=== PATIENT | female | born 1975 | race Two or more races ===

== ENCOUNTER → 2020-08-01 15:33 | Outpatient (BNVA) | payer MEDICAID, SELFPAY | PROVIDERS: Visit Provider Internal Medicine | DX: Z76.89 Persons encountering health services in other specified circumstances (principal) | CPT/HCPCS: 99212 ==

== ENCOUNTER → 2021-01-30 15:06 | Outpatient (BNVA) | payer MEDICAID, SELFPAY | PROVIDERS: Visit Provider Internal Medicine | DX: B19.10 Unspecified viral hepatitis B without hepatic coma (principal) | CPT/HCPCS: 99212 ==

== ENCOUNTER 2021-02-09 10:35 | Outpatient (REF) | payer MEDICAID, SELFPAY ==
[2021-02-09 11:38] LABS: Hematocrit 41.8 % (37-47); Hemoglobin 13.7 g/dl (12.0-16.0); Mean Corpuscular HGB Conc 32.8 g/dl (31.0-35.0); Mean Corpuscular Hemoglobin 27.3 pg (27.0-33.0); Mean Corpuscular Volume 83.3 fL (80-98); Mean Platelet Volume 9.8 fL (9.4-12.3); Platelet Count 285 X10*3/uL (160-400); Red Blood Count 5.02 X10*6/uL (4.20-5.50); Red Cell Distribution Width 14.5 % (11.0-16.0); White Blood Count 6.6 X10*3/uL (4.8-10.8)
[2021-02-09 12:14] LABS: Alanine Aminotransferase 11 U/L (0-31); Albumin Level 4.3 g/dL (3.5-5.0); Alkaline Phosphatase 66 U/L (39-117); Anion Gap 11 (12-20); Aspartate Amino Transferase 16 U/L (5-31); Bilirubin Direct 0.2 mg/dL (0.0-0.5); Bilirubin Total 0.8 mg/dL (0.0-1.0); Blood Urea Nitrogen 11 mg/dL (9-16); Calcium 9.1 mg/dL (8.4-10.2); Carbon Dioxide 27 mmol/L (22-29); Chloride 104 mmol/L (96-108); Estimated Glomerular Filt Rate > 60; Glucose Random 103 mg/dL (60-115); Potassium 4.4 mmol/L (3.3-5.1); Sodium 138 mmol/L (135-145); Total Protein 7.5 g/dL (6.5-8.0)
[2021-02-09 12:43] LABS: HBS Num1 0.17 mIU/mL (0-7.99); ~Hepatitis B Surface Antibody NONREACTIVE (Nonreactive)
[2021-02-09 14:44] LABS: HBsAGNum2 Reactive; HBsAGNum3 Reactive; Hepatitis B Surface Antigen Retest CNFM (Negative)
[2021-02-09 14:52] LABS: Hepatitis B Surface Antigen Rep Reactive (Negative)
[2021-02-10 10:21] LABS: Hepatitis BE Antibody REACTIVE (NON-REACTIVE); Hepatitis BE Antigen NON-REACTIVE (NON-REACTIVE)
[2021-02-11 11:37] LABS: Hepatitis B Viral DNA Qn - cp <1.00 NOT DETECTED Log IU/mL (NOT DETECTED); Hepatitis B Viral DNA Qn-IU/mL <10 NOT DETECTED IU/mL (NOT DETECTED)
[2021-02-14 22:27] LABS: Hepatitis Delta Antibody NEGATIVE
[2021-02-23 20:11] LABS: FIB-ALT 9 U/L (6-29); FIB-Alpha-2-Macroglobulin 210 mg/dL (106-279); FIB-Apolipoprotein A1 135 mg/dL (101-198); FIB-GGT 12 U/L (3-55); FIB-Haptoglobin 125 mg/dL (43-212); FIB-Total Bilirubin 0.6 mg/dL (0.2-1.2); Liver Fibrosis Score 0.16; Liver Fibrosis Stage F0; Nec Inflam Act Grade A0; Nec Inflam Act Score 0.02
== END 2021-02-09 10:36 | disposition home or self-care (01) ==
LOC: HO.LAB 10:35
PROVIDERS: Visit Provider Internal Medicine
DX: B19.10 Unspecified viral hepatitis B without hepatic coma (principal)
CPT/HCPCS: 36415; 80048; 80076; 81596; 85027; 86692; 86706; 86707; 87340; 87350; 87517

== ENCOUNTER → 2021-08-15 13:49 | Outpatient (BNVA) | payer MEDICAID, SELFPAY | PROVIDERS: Visit Provider Internal Medicine | DX: B19.10 Unspecified viral hepatitis B without hepatic coma (principal) | CPT/HCPCS: 99212 ==

== ENCOUNTER 2021-10-23 08:34 | Outpatient (REF) | payer MEDICAID, SELFPAY ==
--- NOTE | ~2021-10-23 | US_ITS ---
EXAMINATION: US ABDOMEN COMPLETE CLINICAL INFORMATION: Unspecified viral hepatitis B without hepatic coma. COMPARISON: Ultrasound abdomen complete 06/01/2020 and 05/19/2019. TECHNIQUE: Real-time imaging of the abdominal viscera. FINDINGS: PANCREAS: Normal. ABDOMINAL AORTA: The proximal, mid, and distal segments are normal in caliber. INFERIOR VENA CAVA: Visualized portions are normal. LIVER: Normal. The liver is normal in size. The liver contour is normal. Parenchymal echogenicity is normal. No focal hepatic lesion. There is no intrahepatic biliary duct dilatation seen. GALLBLADDER: Normal. The gallbladder is physiologically distended without evidence of stones, sludge, polyps, wall thickening or pericholecystic fluid. COMMON BILE DUCT: Normal in caliber measuring 0.2 cm in diameter. RIGHT KIDNEY: Normal. No hydronephrosis. No renal calculi or focal parenchymal lesions. The kidney measures 9.6 cm in maximum dimension. LEFT KIDNEY: Normal. No hydronephrosis. No renal calculi or focal parenchymal lesions. The kidney measures 11.1 cm in maximum dimension. SPLEEN: Normal. The spleen measures 6.9 cm in maximum dimension. FREE FLUID: None. US/US abdomen complete IMPRESSION: Normal abdominal ultrasound.
== END 2021-10-23 08:35 | disposition home or self-care (01) ==
LOC: HO.US 08:34
PROVIDERS: PCP Internal Medicine; Visit Provider Internal Medicine
DX: B19.10 Unspecified viral hepatitis B without hepatic coma (principal)
CPT/HCPCS: 76700

== ENCOUNTER 2022-02-15 07:23 | Outpatient (REF) | payer MEDICAID, SELFPAY ==
[2022-02-15 07:39] LABS: MANUAL DIFF FLAG NO
[2022-02-15 08:18] LABS: Basophils Absolute Auto 0.1 X10*3/uL (0.0-0.2); Eosinophils Absolute Auto 0.2 X10*3/uL (0.0-0.4); Eosinophils Percent Auto 2.3 % (0-4); Hemoglobin 13.7 g/dl (12.0-16.0); Imm Gran Abs Auto 0.02 X10*3/uL (0.00-0.03); Imm Gran Pct Auto 0.3 % (0.0-0.4); Lymphocytes Absolute Auto 2.9 X10*3/uL (1.2-4.9); Lymphocytes Percent Auto 38.9 % (20-40); Mean Corpuscular HGB Conc 32.6 g/dl (31.0-35.0); Mean Corpuscular Hemoglobin 27.3 pg (27.0-33.0); Mean Corpuscular Volume 83.8 fL (80.0-98.0); Mean Platelet Volume 10.1 fL (9.4-12.3); Monocytes Absolute Auto 0.6 X10*3/uL (0.1-1.2); Monocytes Percent Auto 8.6 % (2-11); Neutrophils Absolute Auto 3.6 x10*3/uL (2.0-8.3); Neutrophils Percent Auto 48.9 % (45-73); Platelet Count 243 X10*3/uL (160-400); Red Blood Count 5.01 X10*6/uL (4.20-5.50); Red Cell Distribution Width 14.7 % (11.0-16.0); White Blood Count 7.4 X10*3/uL (4.8-10.8)
[2022-02-15 08:26] LABS: INTERNATIONAL NORM RATIO 1.1 (0.9-1.1); Prothrombin Time 12.8 SEC (9.9-13.0)
[2022-02-15 08:45] LABS: Alanine Aminotransferase 10 U/L (0-31); Albumin Level 4.1 g/dL (3.5-5.0); Alkaline Phosphatase 62 U/L (39-117); Anion Gap 11 (12-20); Aspartate Amino Transferase 15 U/L (5-31); Bilirubin Direct 0.2 mg/dL (0.0-0.5); Bilirubin Total 0.4 mg/dL (0.0-1.0); Blood Urea Nitrogen 13 mg/dL (9-16); Calcium 9.4 mg/dL (8.4-10.2); Carbon Dioxide 27 mmol/L (22-29); Chloride 105 mmol/L (96-108); Estimated Glomerular Filt Rate > 60; Glucose Random 89 mg/dL (60-115); Potassium 4.3 mmol/L (3.3-5.1); Sodium 139 mmol/L (135-145); Total Protein 7.3 g/dL (6.5-8.0)
[2022-02-18 16:52] LABS: Hepatitis B Viral DNA Qn - cp <1.00 NOT DETECTED Log IU/mL (NOT DETECTED); Hepatitis B Viral DNA Qn-IU/mL <10 NOT DETECTED IU/mL (NOT DETECTED)
[2022-02-20 23:52] LABS: Hepatitis Delta Antibody NEGATIVE
[2022-02-25 02:27] LABS: FIB-ALT 5 U/L (6-29); FIB-Alpha-2-Macroglobulin 171 mg/dL (106-279); FIB-Apolipoprotein A1 123 mg/dL (101-198); FIB-GGT 14 U/L (3-55); FIB-Haptoglobin 137 mg/dL (43-212); FIB-Total Bilirubin 0.3 mg/dL (0.2-1.2); Liver Fibrosis Score 0.08; Liver Fibrosis Stage F0; Nec Inflam Act Grade A0; Nec Inflam Act Score 0.01
== END 2022-02-15 07:24 | disposition home or self-care (01) ==
LOC: HO.LAB 07:23
PROVIDERS: Visit Provider Internal Medicine
DX: B19.10 Unspecified viral hepatitis B without hepatic coma (principal)
CPT/HCPCS: 36415; 80048; 80076; 81596; 85025; 85610; 86692; 87517

== ENCOUNTER → 2022-02-25 13:00 | Outpatient (BNVA) | payer MEDICAID, SELFPAY | PROVIDERS: Visit Provider Internal Medicine | DX: B19.10 Unspecified viral hepatitis B without hepatic coma (principal); Z79.899 Other long term (current) drug therapy | CPT/HCPCS: 99212 ==

== ENCOUNTER 2022-08-30 09:47 | Outpatient (REF) | payer MEDICAID, SELFPAY ==
[2022-09-04 16:03] LABS: Hepatitis B Viral DNA Qn-IU/mL <10 NOT DETECTED IU/mL (NOT DETECTED)
[2022-09-10 11:24] LABS: FIB-ALT 8 U/L (6-29); FIB-Alpha-2-Macroglobulin 181 mg/dL (106-279); FIB-Apolipoprotein A1 143 mg/dL (101-198); FIB-GGT 20 U/L (3-55); FIB-Haptoglobin 143 mg/dL (43-212); FIB-Total Bilirubin 0.3 mg/dL (0.2-1.2); Liver Fibrosis Score 0.09; Liver Fibrosis Stage F0; Nec Inflam Act Grade A0; Nec Inflam Act Score 0.01
[2022-09-13 19:53] LABS: Hepatitis B Viral DNA Qn - cp <1.00 NOT DETECTED Log IU/mL (NOT DETECTED); Hepatitis Delta Antibody NEGATIVE
== END 2022-08-30 09:48 | disposition home or self-care (01) ==
LOC: HO.LAB 09:47
PROVIDERS: Visit Provider Internal Medicine
DX: B19.10 Unspecified viral hepatitis B without hepatic coma (principal)
CPT/HCPCS: 36415; 81596; 86692; 87517

== ENCOUNTER → 2022-09-17 12:50 | Outpatient (BNVA) | payer MEDICAID, SELFPAY | PROVIDERS: Visit Provider Internal Medicine | DX: B18.1 Chronic viral hepatitis B without delta-agent (principal) | CPT/HCPCS: 99212 ==

== ENCOUNTER 2022-10-17 09:33 | Outpatient (REF) | payer MEDICAID, SELFPAY ==
--- NOTE | ~2022-10-17 | US_ITS ---
EXAMINATION: US ABDOMEN COMPLETE CLINICAL INFORMATION: Unspecified viral hepatitis B without hepatic coma. COMPARISON: Ultrasound abdomen complete 10/23/2021 and 05/19/2019. TECHNIQUE: Real-time imaging of the abdominal viscera. FINDINGS: PANCREAS: Normal. ABDOMINAL AORTA: The proximal, mid, and distal segments are normal in caliber. INFERIOR VENA CAVA: Visualized portions are normal. LIVER: Normal. The liver is normal in size. The liver contour is normal. Parenchymal echogenicity is normal. No focal hepatic lesion. There is no intrahepatic biliary duct dilatation seen. GALLBLADDER: Normal. The gallbladder is physiologically distended without evidence of stones, sludge, polyps, wall thickening or pericholecystic fluid. COMMON BILE DUCT: Normal in caliber measuring 0.2 cm in diameter. RIGHT KIDNEY: Normal. No hydronephrosis. No renal calculi or focal parenchymal lesions. The kidney measures 10.1 cm in maximum dimension. LEFT KIDNEY: Normal. No hydronephrosis. No renal calculi or focal parenchymal lesions. The kidney measures 10.3 cm in maximum dimension. SPLEEN: The spleen measures 7.4 cm in maximum dimension. There is a small calcification measuring 0.3 x 0.3 x 0.3 cm. FREE FLUID: None. US/US abdomen complete IMPRESSION: Unremarkable complete abdomen ultrasound.
== END 2022-10-17 09:34 | disposition home or self-care (01) ==
LOC: HO.US 09:33
PROVIDERS: Visit Provider Internal Medicine
DX: B19.10 Unspecified viral hepatitis B without hepatic coma (principal)
CPT/HCPCS: 76700

== ENCOUNTER → 2022-11-08 13:15 | Outpatient (BNVA) | payer MEDICAID, SELFPAY | PROVIDERS: Visit Provider Internal Medicine | DX: Z13.89 Encounter for screening for other disorder (principal) ==

== ENCOUNTER 2023-04-01 08:42 | Outpatient (REF) | payer MEDICAID, SELFPAY ==
[2023-04-01 09:19] LABS: MANUAL DIFF FLAG NO
[2023-04-01 09:26] LABS: Basophils Absolute Auto 0.1 X10*3/uL (0.0-0.2); Basophils Percent Auto 0.8 % (0-2); Eosinophils Absolute Auto 0.1 X10*3/uL (0.0-0.4); Eosinophils Percent Auto 1.4 % (0-4); Hematocrit 46.2 % (37.0-47.0); Hemoglobin 15.2 g/dl (12.0-16.0); Imm Gran Abs Auto 0.01 X10*3/uL (0.00-0.03); Imm Gran Pct Auto 0.1 % (0.0-0.4); Lymphocytes Absolute Auto 2.7 X10*3/uL (1.2-4.9); Lymphocytes Percent Auto 31.9 % (20-40); Mean Corpuscular HGB Conc 32.9 g/dl (31.0-35.0); Mean Corpuscular Hemoglobin 27.3 pg (27.0-33.0); Mean Corpuscular Volume 83.1 fL (80.0-98.0); Mean Platelet Volume 9.4 fL (9.4-12.3); Monocytes Absolute Auto 0.7 X10*3/uL (0.1-1.2); Monocytes Percent Auto 8.6 % (2-11); Neutrophils Absolute Auto 4.8 x10*3/uL (2.0-8.3); Neutrophils Percent Auto 57.2 % (45-73); Platelet Count 258 X10*3/uL (160-400); Red Blood Count 5.56 X10*6/uL (4.20-5.50); Red Cell Distribution Width 14.3 % (11.0-16.0); White Blood Count 8.4 X10*3/uL (4.8-10.8)
[2023-04-01 10:27] LABS: Alanine Aminotransferase 10 U/L (0-31); Albumin Level 4.5 g/dL (3.5-5.0); Alkaline Phosphatase 72 U/L (39-117); Aspartate Amino Transferase 16 U/L (5-31); Bilirubin Direct 0.2 mg/dL (0.0-0.5); Bilirubin Total 0.6 mg/dL (0.0-1.0); Estimated Glomerular Filt Rate > 60; Total Protein 8.1 g/dL (6.5-8.0)
[2023-04-02 02:59] LABS: ~Hepatitis B Surface Antibody NONREACTIVE (Nonreactive)
[2023-04-02 07:16] LABS: Hepatitis B Surface Antigen Retest CNFM (Negative)
[2023-04-02 10:37] LABS: HBsAGNum2 Reactive; HBsAGNum3 Reactive
[2023-04-02 16:28] LABS: Hepatitis B Viral DNA Qn - cp NOT DETECTED Log IU/mL (NOT DETECTED); Hepatitis B Viral DNA Qn-IU/mL NOT DETECTED (NOT DETECTED)
[2023-04-05 17:44] LABS: FIB-ALT 10 U/L (6-29); FIB-Alpha-2-Macroglobulin 204 mg/dL (106-279); FIB-Apolipoprotein A1 157 mg/dL (101-198); FIB-GGT 21 U/L (3-55); FIB-Haptoglobin 163 mg/dL (43-212); FIB-Total Bilirubin 0.5 mg/dL (0.2-1.2); Liver Fibrosis Score 0.12; Liver Fibrosis Stage F0; Nec Inflam Act Grade A0; Nec Inflam Act Score 0.02
[2023-04-07 10:00] LABS: HBsAG REACTIVE
== END 2023-04-01 08:43 | disposition home or self-care (01) ==
LOC: HO.LAB 08:42
PROVIDERS: Visit Provider Internal Medicine
DX: B19.10 Unspecified viral hepatitis B without hepatic coma (principal)
CPT/HCPCS: 36415; 80076; 81596; 82565; 85025; 86706; 87340; 87517

== ENCOUNTER 2023-04-23 10:56 | Outpatient (AMB) | payer MEDICAID, SELFPAY ==
[2023-04-23 11:04] VITALS: BP 106/60; PULSE 56; O2SAT 99; BMI 18.2
--- NOTE | 2023-04-23 11:04 | A.OFFVIS_ITS ---
Intake Vital Signs 04/23/23 11:04 Height 5 ft 4 in Weight 106 lb BMI 18.2 BP 106/60 Pulse 56 Pulse Oximetry (%) 99 Intake Visit Reasons: 6 mth F/U/labs and ultrasound abdomen Deputy County Counsel Required: No Allergies No Known Allergies Allergy (Verified 04/23/23 11:06) HPI 6 mth F/U/labs and ultrasound abdomen HPI Details She is here for followup Hepatitis B. She has no complaints and feels well. She has labs done on 04/01 and show Hepatitis B surface antigen and antibody negative. Hepatitis B viral load is undetectable. Fibrosis score is F0. Hepatitis D level has been undetectable in past. [facility] Medical History Breast cancer Hepatitis B Social History Cigarettes Per Day: 6 Years Smoked: 1 Review of Systems Const All systems reviewed & are unremarkable except as noted in HPI and below Physical Exam Vital Signs: Last Vital Signs Pulse 56 04/23/23 11:04 BP 106/60 04/23/23 11:04 Pulse Ox 99 04/23/23 11:04 BMI result Body Mass Index 18.2 Const General: cooperative Orientation/consciousness: patient oriented x3 HEENT Head: Yes normal to inspection Mouth: Normal oral and palatal mucosa present Eyes General: appearance normal, both eyes and all related structures Pupils: Equal, round and reactive pupils present Resp Effort & Inspection: normal respiratory effort Cardio Rate: regular rate Rhythm: regular rhythm GI Palpation (GI): Soft to palpation and nontender General: Yes no CVA tenderness Back/Spine/Pelvis Back: no CVA tenderness Skin General skin exam: no rashes or lesions noted Neuro General: patient oriented x3 Cranial nerves: Yes CN's II-XII intact bilaterally and Yes Equal, round and reactive pupils present Extrem General: Yes normal to inspection Psych Appearance: grossly normal Assessment & Plan Assessment & Plan (1) Hepatitis B: Comment: She has chronic active Hepatitis B She has had unremarkable blood work with viral load undetectable and LFTs un remarkable. She is F0 as well 03/2023. Code(s): B19.10 - Unspecified viral hepatitis B without hepatic coma Plan: Would check labs and u/s in six months. See then after labs and u/s. Orders: Orders Creatinine 5 Months B19.10 - Unspecified viral hepatitis B without hepatic coma Liver Panel 5 Months B19.10 - Unspecified viral hepatitis B without hepatic coma Complete Blood Count Auto Diff 5 Months B19.10 - Unspecified viral hepatitis B without hepatic coma Hepatitis B Surface Antibody 5 Months B19.10 - Unspecified viral hepatitis B without hepatic coma Hepatitis B Viral DNA Qn 5 Months B19.10 - Unspecified viral hepatitis B without hepatic coma Hepatitis Delta Antibody 5 Months B19.10 - Unspecified viral hepatitis B without hepatic coma Hepatitis B Surface Antigen 5 Months B19.10 - Unspecified viral hepatitis B w ithout hepatic coma Hepatitis C Viral Load 5 Months B19.10 - Unspecified viral hepatitis B without hepatic coma US abdomen complete 5 Months B19.10 - Unspecified viral hepatitis B without hepatic coma Medications: Refilled tenofovir alafenamide (Vemlidy) must administer with a meal/food 25 mg PO QAM 90 tabs 1RF 90 days Coding Level of Care Code Est Pt Level 3 (28140) Diagnoses Hepatitis B B19.10
== END 2023-04-23 12:49 | disposition home or self-care (01) ==
LOC: HO.HID 10:56
PROVIDERS: Visit Provider Internal Medicine
DX: B19.10 Unspecified viral hepatitis B without hepatic coma (principal)
CPT/HCPCS: 99213

== ENCOUNTER → 2023-04-23 10:56 | Outpatient (BNVA) | payer MEDICAID, SELFPAY | PROVIDERS: Visit Provider Internal Medicine | DX: B19.10 Unspecified viral hepatitis B without hepatic coma (principal) | CPT/HCPCS: 99212 ==

== ENCOUNTER 2023-04-28 12:28 | Outpatient (REF) | payer MEDICAID, SELFPAY ==
--- NOTE | ~2023-04-28 | XR_ITS ---
EXAMINATION: XR SHOULDER, LEFT CLINICAL INFORMATION: Acute pain. COMPARISON: None available. TECHNIQUE: AP external rotation, Grashey, scapular Y, and axillary views of the left shoulder. FINDINGS: The bones and soft tissues are normal. No fracture. Glenohumeral and acromioclavicular alignment is anatomic with normal joint space. No abnormal soft tissue calcifications. XR/XR shoulder LT min 2V IMPRESSION: Normal left shoulder.
== END 2023-04-28 12:29 | disposition home or self-care (01) ==
LOC: HO.XRAY 12:28
PROVIDERS: PCP Family Medicine; Visit Provider Family Medicine
DX: M25.512 Pain in left shoulder (principal)
CPT/HCPCS: 73030

== ENCOUNTER 2023-05-16 08:17 | Outpatient (REF) | payer MEDICAID, SELFPAY ==
--- NOTE | ~2023-05-16 | US_ITS ---
EXAMINATION: US ABDOMEN COMPLETE CLINICAL INFORMATION: Cirrhosis, history of hepatitis B. COMPARISON: Abdominal ultrasound 10/17/2022. TECHNIQUE: Real-time imaging of the abdominal viscera. FINDINGS: PANCREAS: Heterogeneous parenchyma with numerous hyperechoic foci. ABDOMINAL AORTA: The proximal, mid, and distal segments are normal in caliber. INFERIOR VENA CAVA: Visualized portions are normal. LIVER: Normal. The liver is normal in size. The liver contour is normal. Parenchymal echogenicity is normal. No focal hepatic lesion. There is no intrahepatic biliary duct dilatation seen. GALLBLADDER: Normal. The gallbladder is physiologically distended without evidence of stones, sludge, polyps, wall thickening or pericholecystic fluid. COMMON BILE DUCT: Normal in caliber measuring 0.2 cm in diameter. RIGHT KIDNEY: Normal. No hydronephrosis. No renal calculi or focal parenchymal lesions. The kidney measures 10 cm in maximum dimension. LEFT KIDNEY: Normal. No hydronephrosis. No renal calculi or focal parenchymal lesions. The kidney measures 11 cm in maximum dimension. SPLEEN: A 0.8 cm hyperechoic focus in the spleen is not convincingly changed, most likely related with a calcification. The spleen measures 8 cm in maximum dimension. FREE FLUID: None. US/US abdomen complete IMPRESSION: 1. Heterogeneous appearance of the pancreas with numerous hyperechoic foci which could be seen in the setting of chronic pancreatitis. However, incompletely characterized by ultrasound. Recommend correlation with a CT or MRI of the abdomen. 2. Normal sonographic appearance of the liver.
== END 2023-05-16 08:18 | disposition home or self-care (01) ==
LOC: HO.US 08:17
PROVIDERS: PCP Family Medicine; Visit Provider Family Medicine
DX: B19.10 Unspecified viral hepatitis B without hepatic coma (principal)
CPT/HCPCS: 76700

== ENCOUNTER 2023-09-19 08:02 | Outpatient (REF) | payer MEDICAID, SELFPAY ==
--- NOTE | ~2023-09-19 | US_ITS ---
EXAMINATION: US ABDOMEN COMPLETE CLINICAL INFORMATION: Viral hepatitis B. Evaluate cirrhosis. COMPARISON: Ultrasound abdomen complete 05/16/2023 and 10/17/2022. TECHNIQUE: Real-time imaging of the abdominal viscera. FINDINGS: PANCREAS: Normal. ABDOMINAL AORTA: The proximal, mid, and distal segments are normal in caliber. INFERIOR VENA CAVA: Visualized portions are normal. LIVER: Normal. The liver is normal in size. The liver contour is normal. Parenchymal echogenicity is normal. No focal hepatic lesion. There is no intrahepatic biliary duct dilatation seen. GALLBLADDER: Normal. The gallbladder is physiologically distended without evidence of stones, sludge, polyps, wall thickening or pericholecystic fluid. COMMON BILE DUCT: Normal in caliber measuring 0.12 cm in diameter. RIGHT KIDNEY: Normal. No hydronephrosis. No renal calculi or focal parenchymal lesions. The kidney measures 10.4 cm in maximum dimension. LEFT KIDNEY: Normal. No hydronephrosis. No renal calculi or focal parenchymal lesions. The kidney measures 11.3 cm in maximum dimension. SPLEEN: There is a calcification in the lower pole of the spleen consistent with a granuloma. The spleen measures 7.2 cm in maximum dimension. FREE FLUID: None. US/US abdomen complete IMPRESSION: Normal-appearing liver without morphologic cirrhosis. No visible liver mass. Normal size spleen. No ascites.
== END 2023-09-19 08:03 | disposition home or self-care (01) ==
LOC: HO.US 08:02
PROVIDERS: PCP Family Medicine; Visit Provider Internal Medicine
DX: B19.10 Unspecified viral hepatitis B without hepatic coma (principal)
CPT/HCPCS: 76700

== ENCOUNTER 2023-10-20 07:54 | Outpatient (REF) | payer MEDICAID, SELFPAY ==
[2023-10-20 08:10] LABS: MANUAL DIFF FLAG NO
[2023-10-20 08:17] LABS: Basophils Absolute Auto 0.1 X10*3/uL (0.0-0.2); Basophils Percent Auto 0.9 % (0-2); Eosinophils Absolute Auto 0.2 X10*3/uL (0.0-0.4); Eosinophils Percent Auto 1.8 % (0-4); Hematocrit 42.6 % (37.0-47.0); Hemoglobin 14.1 g/dl (12.0-16.0); Imm Gran Abs Auto 0.02 X10*3/uL (0.00-0.03); Imm Gran Pct Auto 0.2 % (0.0-0.4); Lymphocytes Absolute Auto 3.3 X10*3/uL (1.2-4.9); Lymphocytes Percent Auto 38.4 % (20-40); Mean Corpuscular HGB Conc 33.1 g/dl (31.0-35.0); Mean Corpuscular Hemoglobin 26.7 pg (27.0-33.0); Mean Corpuscular Volume 80.5 fL (80.0-98.0); Mean Platelet Volume 9.2 fL (9.4-12.3); Monocytes Absolute Auto 0.7 X10*3/uL (0.1-1.2); Monocytes Percent Auto 7.7 % (2-11); Neutrophils Absolute Auto 4.4 x10*3/uL (2.0-8.3); Platelet Count 267 X10*3/uL (160-400); Red Blood Count 5.29 X10*6/uL (4.20-5.50); Red Cell Distribution Width 14.6 % (11.0-16.0); White Blood Count 8.7 X10*3/uL (4.8-10.8)
[2023-10-20 08:58] LABS: Alanine Aminotransferase 7 U/L (0-31); Albumin Level 4.2 g/dL (3.5-5.0); Alkaline Phosphatase 77 U/L (39-117); Aspartate Amino Transferase 14 U/L (5-31); Bilirubin Direct 0.1 mg/dL (0.0-0.5); Bilirubin Total 0.4 mg/dL (0.0-1.0); Estimated Glomerular Filt Rate > 60; Total Protein 7.7 g/dL (6.5-8.0)
[2023-10-20 09:22] LABS: ~Hepatitis B Surface Antibody NONREACTIVE (Nonreactive)
[2023-10-20 10:17] LABS: HBsAGNum2 Reactive; HBsAGNum3 Reactive; Hepatitis B Surface Antigen Retest CNFM (Negative)
[2023-10-22 12:19] LABS: Hepatitis B Viral DNA Qn - cp <1.00 DETECTED Log IU/mL (NOT DETECTED); Hepatitis B Viral DNA Qn-IU/mL <10 DETECTED IU/mL (NOT DETECTED)
[2023-10-22 18:59] LABS: HCV Log PCR <1.18 NOT DETECTED Log IU/mL (NOT DETECTED); HepC Viral Load <15 NOT DETECTED IU/mL (NOT DETECTED)
[2023-10-25 21:39] LABS: Hepatitis Delta Antibody NEGATIVE
== END 2023-10-20 07:55 | disposition home or self-care (01) ==
LOC: HO.LAB 07:54
PROVIDERS: PCP Family Medicine; Visit Provider Internal Medicine
DX: B19.10 Unspecified viral hepatitis B without hepatic coma (principal)
CPT/HCPCS: 36415; 80076; 82565; 85025; 86692; 86706; 87340; 87517; 87522

== ENCOUNTER 2023-10-29 13:00 | Outpatient (AMB) | payer MEDICAID, SELFPAY ==
--- NOTE | 2023-10-29 13:10 | A.OFFVIS_ITS ---
Intake Vital Signs 10/29/23 13:13 Height 5 ft 4 in Weight 109 lb BMI 18.7 Pulse 69 Pulse Source Pulse Oximeter Pulse Oximetry (%) 99 Oxygen Delivery Method Room Air Intake Visit Reasons: 6 mth f/u,lab Allergies No Known Allergies Allergy (Verified 10/29/23 13:14) HPI 6 mth f/u,lab HPI Details She is here for followup Hepatitis B. She has been here for years and no increase viral load or other concerns. She has negative viral load for Hepatitis B and no complaints. She is going for colonoscopy. [facility] Medical History Breast cancer Hepatitis B Social History Cigarettes Per Day: 6 Years Smoked: 1 Review of Systems Const All systems reviewed & are unremarkable except as noted in HPI and below Physical Exam Vital Signs: Last Vital Signs Pulse 69 10/29/23 13:13 Pulse Ox 99 10/29/23 13:13 Oxygen Delivery Method Room Air 10/29/23 13:13 BMI result Body Mass Index 18.7 Const General: cooperative HEENT Head: Yes normal to inspection Face and sinus: Yes normal facial exam Mouth: Normal oral and palatal mucosa present Teeth and gingiva: dentition normal Eyes General: appearance normal, both eyes and all related structures Pupils: Equal, round and reactive pupils present Resp Effort & Inspection: normal respiratory effort Cardio Rate: regular rate Rhythm: regular rhythm GI Palpation (GI): Soft to palpation and nontender General: Yes no CVA tenderness Back/Spine/Pelvis Back: no CVA tenderness Skin General skin exam: no rashes or lesions noted Neuro General: moves all extremities Cranial nerves: Yes Equal, round and reactive pupils present Extrem General: Yes normal to inspection Psych Appearance: grossly normal Assessment & Plan Assessment & Plan (1) Hepatitis B: Comment: She has chronic inactive Hepatitis B She has had unremarkable blood work with viral load undetectable and LFTs unremarkable. She is F0 Code(s): B19.10 - Unspecified viral hepatitis B without hepatic coma Plan: Continue tenofovir alafenamide indefinitely. See in one year with labs and u/s (both ordered) before. Orders: Orders Complete Blood Count Auto Diff 11 Months B19.10 - Unspecified viral hepatitis B without hepatic coma Basic Metabolic Panel 11 Months B19.10 - Unspecified viral hepatitis B without hepatic coma Liver Panel 11 Months B19.10 - Unspecified viral hepatitis B without hepatic coma Liver Fibrosis Pnl 11 Months B19.10 - Unspecified viral hepatitis B without hepatic coma Hepatitis B Viral DNA Qn 11 Months B19.10 - Unspecified viral hepatitis B without hepatic coma Hepatitis Delta Antibody 11 Months B19.10 - Unspecified viral hepatitis B witho ut hepatic coma US abdomen complete 11 Months B19.10 - Unspecified viral hepatitis B without hepatic coma Medications: Refilled tenofovir alafenamide (Vemlidy) must administer with a meal/food 25 mg PO QAM 90 tabs 3RF 90 days Coding Level of Care Code Est Pt Level 3 (36398) Diagnoses Hepatitis B B19.10
[2023-10-29 13:13] VITALS: PULSE 69; O2SAT 99; BMI 18.7
== END 2023-10-29 13:47 | disposition home or self-care (01) ==
LOC: HO.HID 13:00
PROVIDERS: PCP Family Medicine; Referring Provider Family Medicine; Visit Provider Internal Medicine
DX: B19.10 Unspecified viral hepatitis B without hepatic coma (principal)
CPT/HCPCS: 99213

== ENCOUNTER → 2023-10-29 13:00 | Outpatient (BNVA) | payer MEDICAID, SELFPAY | PROVIDERS: PCP Family Medicine; Visit Provider Internal Medicine | DX: B19.10 Unspecified viral hepatitis B without hepatic coma (principal) | CPT/HCPCS: 99212 ==

== ENCOUNTER 2024-01-08 09:02 | Outpatient (REF) | payer MEDICAID, SELFPAY ==
[2024-01-08 14:50] LABS: Anion Gap 8 (12-20); Blood Urea Nitrogen 15 mg/dL (9-16); Calcium 9.4 mg/dL (8.4-10.2); Carbon Dioxide 30 mmol/L (22-29); Chloride 106 mmol/L (96-108); Estimated Glomerular Filt Rate > 60; Glucose Random 81 mg/dL (60-115); Potassium 4.2 mmol/L (3.3-5.1); Sodium 140 mmol/L (135-145)
== END 2024-01-08 09:03 | disposition home or self-care (01) ==
LOC: HO.CHCLDS 09:02
PROVIDERS: Visit Provider Family Medicine
DX: B18.1 Chronic viral hepatitis B without delta-agent (principal)
CPT/HCPCS: 36415; 80048

== ENCOUNTER 2024-10-15 09:05 | Outpatient (REF) | payer MEDICAID, SELFPAY ==
--- NOTE | ~2024-10-15 | US_ITS ---
EXAMINATION: US ABDOMEN HISTORY: B19.10 - Unspecified viral hepatitis B without hepatic coma TECHNIQUE: Real-time grayscale ultrasound imaging of the abdomen was performed and images were reviewed. COMPARISON: Comparison is made with the prior examination dated 09/19/2023. FINDINGS: Liver: The liver is normal in size and demonstrates homogeneous echotexture. No focal mass or intrahepatic biliary ductal dilatation is identified. There is normal hepatopedal flow in the portal vein. Gallbladder and biliary tree: The gallbladder is unremarkable, without evidence of calculi, wall thickening, or pericholecystic fluid. There is no sonographic Bergman sign. The common bile duct is normal in caliber measuring 2 mm. Kidneys: The right kidney measures 10.1 cm in length. The left kidney measures 10.5 cm in length. The kidneys are unremarkable, without evidence of masses, hydronephrosis, or calculi. Pancreas: The pancreatic head, neck, and body are unremarkable. The pancreatic tail is obscured by bowel gas. Spleen: The spleen is normal in size and contour, measuring 6.7 cm in length. Abdominal aorta and inferior vena cava: The visualized portions of the abdominal aorta and inferior vena cava are normal in caliber. There is no free fluid in the abdomen. US/US abdomen complete IMPRESSION: Unremarkable abdominal ultrasound. Electronically signed by: José Lion MD 10/15/2024 11:02 AM [facility]
== END 2024-10-15 09:06 | disposition home or self-care (01) ==
LOC: HO.US 09:05
PROVIDERS: PCP Family Medicine; Visit Provider Internal Medicine
DX: B19.10 Unspecified viral hepatitis B without hepatic coma (principal)
CPT/HCPCS: 76700

== ENCOUNTER → 2024-10-15 09:09 | Outpatient (BNV) | payer MEDICAID, SELFPAY | PROVIDERS: PCP Family Medicine; Visit Provider Radiology Diagnostic Radiology | DX: B19.10 Unspecified viral hepatitis B without hepatic coma (principal) | CPT/HCPCS: 76700 ==

== ENCOUNTER 2024-11-05 08:22 | Outpatient (REF) | payer MEDICAID, SELFPAY ==
[2024-11-05 08:34] LABS: MANUAL DIFF FLAG NO
[2024-11-05 08:38] LABS: Basophils Absolute Auto 0.1 X10*3/uL (0.0-0.2); Basophils Percent Auto 0.9 % (0-2); Eosinophils Absolute Auto 0.1 X10*3/uL (0.0-0.4); Eosinophils Percent Auto 1.2 % (0-4); Hematocrit 42.5 % (37.0-47.0); Hemoglobin 14.2 g/dl (12.0-16.0); Imm Gran Abs Auto 0.02 X10*3/uL (0.00-0.03); Imm Gran Pct Auto 0.2 % (0.0-0.4); Lymphocytes Absolute Auto 3.4 X10*3/uL (1.2-4.9); Lymphocytes Percent Auto 38.8 % (20-40); Mean Corpuscular HGB Conc 33.4 g/dl (31.0-35.0); Mean Corpuscular Hemoglobin 27.2 pg (27.0-33.0); Mean Corpuscular Volume 81.4 fL (80.0-98.0); Mean Platelet Volume 9.4 fL (9.4-12.3); Monocytes Absolute Auto 0.6 X10*3/uL (0.1-1.2); Monocytes Percent Auto 7.2 % (2-11); Neutrophils Absolute Auto 4.5 x10*3/uL (2.0-8.3); Neutrophils Percent Auto 51.7 % (45-73); Platelet Count 279 X10*3/uL (160-400); Red Blood Count 5.22 X10*6/uL (4.20-5.50); Red Cell Distribution Width 14.6 % (11.0-16.0); White Blood Count 8.7 X10*3/uL (4.8-10.8)
--- OUTSIDE RECORDS SUMMARY | 2024-11-05 08:41 | XMS_ITS | Encounter Summary ---
Author Organization [employer] Address [address] [place] [address] Care Team Providers Care Early Head Start Teacher Name Role Phone Elaine Braden MD Primary Care Provider [phone] Encounter Details Date Type Department Care Team (Late st Contact Info) Description 08/18/2023 Abstract [facility] MEDICINE [address] [place] [address] Ronit Rose Social History Tobacco Use Types Packs/Day Years Used Date Smoking Tobacco: Every Day Cigarettes Passive Smoke Exposure: Never Smokeless Tobacco: Current Alcohol Use Standard Drinks/Week Comments Never 0 (1 standard drink = 0.6 oz pur e alcohol) Depression Answer Date Recorded Patient Health Questionnaire-9 Score 0 04/21/2023 Housing Stability Answer Date Recorded What is your housing situation today? I have kelliejennifer ortez 07/07/[address] you li ve. Do you have problems with any of the following? None of the above 07/07/2023 Food Insecurity Answer Date Recorded Within the past 12 months, y ou worried that your food would run out before you got money to buy more: Never True 07/07/2023 Within the past 12 months,th e food you bought just didn't last and you didn't have enough money to get more: Never True Transportation Answer Date Recorded In the past 12 months, has l ack of transportation kept you from medical appts, meetings, work or from getting things needed for daily living? No 07/07/2023 Utilities Answer Date Recorded In the past 12 months, has t he electric, gas, oil or water company threatened to shut off services in your home? No 07/07/2023 Depression Answer Date Recorded Patient Health Questionnaire-2 Score 0 04/21/2023 Comments Unknown Sex and Gender Information Value Date Recorded Sex Assigned at Female 07/22/2022 10:30 AM EDT Legal Sex Female 10:30 AM EDT Gender Identity Female 07/22/2022 10:30 AM EDT Sexual Orientation Straight 07/22/2022 10 :30 AM EDT documented as of this encounter Plan of Treatment Not on file documented as of this encounter Visit Diagnoses Not on filedocumented in this encounter Additional Health Concerns Assessment Noted Time PHQ-9 Depression Total Score: 0 04/21/20 11:09 AM EDT documented as of this encounter Care Teams Early Head Start Teacher Relationship Specialty Start Date End Date Elaine Braden MD [address] [place] [address] PCP - General Family Medicine 09/25/22 documented as of this encounter
--- OUTSIDE RECORDS SUMMARY | 2024-11-05 08:41 | XMS_ITS | Encounter Summary ---
Author Organization [employer] Address [address] [place] [address] Care Team Providers Care Electronic Parts Salesperson Name Role Phone Elaine Braden MD Primary Care Provider [phone] Encounter Details Date Type Department Care Team (Late st Contact Info) Description 06/25/2024 Orders Only [facility] MEDICINE [address] [place] [address] Provider, MD Noel Social History Tobacco Use Types Packs/Day Years Used Date Smoking Tobacco: Every Day Cigarettes Passive Smoke Exposure: Never Smokeless Tobacco: Current Alcohol Use Standard Drinks/Week Comments Never 0 (1 standard drink = 0.6 oz pur e alcohol) Depression Answer Date Recorded Patient Health Questionnaire-9 Score 0 04/21/2023 Housing Stability Answer Date Recorded What is your housing situation today? I have kellie pérez 07/07/[address] you li [...] on file documented as of this encounter Procedures Procedure Name Priority Date/Time Associated Diagnosis Comments HM MAMMOGRAPHY Routine 01/05/2024 3:35 PM EDT documented in this encounter Results * Hm Mammography (01/05/2024 3:35 PM EDT) Anatomical Region Laterality Modality Other Historical Provider HEALTH MAINTENANCE Final Result documented in this encounter Visit Diagnoses Not on filedocumented in this encounter Additional Health Concerns Assessment Noted Time PHQ-9 Depression Total Score: 0 04/21/20 11:09 AM EDT documented as of this encounter Care Teams Electronic Parts Salesperson Relationship Specialty Start Date End Date Elaine Braden MD [address] [place] [id number] PCP - General Family Medicine 09/25/22 documented as of this encounter
--- OUTSIDE RECORDS SUMMARY | 2024-11-05 08:41 | XMS_ITS | Encounter Summary ---
Author Organization [employer] Address [address] [place] [address] Care Team Providers Care Brass Molder Name Role Phone Elaine Braden MD Primary Care Provider [phone] Reason for Visit * Reason Onset Date Comments Returning Call 01/01/2024 Encounter Details Date Type Department Care Team ([facility] st Contact Info) Description 01/01/2024 Telephone [facility] MEDICINE [address] [place] [address] Elaine Braden MD [address] [place], [place] [phone] Returning Call Social History Tobacco Use Types Packs/Day Years Used Date Smoking Tobacco: Every Day Cigarettes Passive Smoke Exposure: Never Smokeless Tobacco: Current Alcohol Use Standard Drinks/Week Comments Never 0 (1 standard drink = 0.6 oz pur e alcohol) Depression Answer Date Recorded Patient Health Questionnaire-9 Score 0 04/21/2023 Housing Stability Answer Date Recorded What is your housing situation today? I have kellie ortez 07/07/[address] you [...] AM EDT documented as of this encounter Miscellaneous Notes * Telephone Encounter - Daniel Vince - 01/01/2024 9:25 AM EDT Tc from pt returning call regarding message below. CC Yulia Dorsey placed outbound call to patient to complete pre-visit planning. No answer at this time. Patient name and were not confirmed. CC left voicemail requesting return call. Direct contactinformation provided. Please contact pt at [phone]. documented in this encounter Plan of Treatment Not on file documented as of this encounter Visit Diagnoses Not on filedocumented in this encounter Additional Health Concerns Assessment Noted Time PHQ-9 Depression Total Score: 0 04/21/20 23 11:09 AM EDT documented as of this encounter Care Teams Brass Molder Relationship Specialty Start Date End Date Elaine Braden MD [address] [place] [address] PCP - General Family Medicine 09/25/22 documented as of this encounter
--- OUTSIDE RECORDS SUMMARY | 2024-11-05 08:41 | XMS_ITS | Encounter Summary ---
Author Organization [employer] Address [address] [place] [address] Care Team Providers Care Analog Ic Design Architect Name Role Phone Elaine Braden MD Primary Care Provider [phone] Encounter Details Date Type Department Care Team (Late st Contact Info) Description 04/25/2023 Abstract [employer] [facility] [address] [place], [place] [phone] Elaine Braden MD [address] [place], [place] [phone] Social History Tobacco Use Types Packs/Day Years Used Date Smoking Tobacco: Every Day Cigarettes Passive Smoke Exposure: Never Smokeless Tobacco: Current Alcohol Use Standard Drinks/Week Comments Never 0 (1 standard drink = 0.6 oz pur e alcohol) Depression Answer Date Recorded Patient Health Questionnaire-9 Score 0 04/21/2023 Depression Answer Date Recorded Patient Health Questionnaire-2 [...] documented as of this encounter Care Teams Analog Ic Design Architect Relationship Specialty Start Date End Date Elaine Braden MD [address] [place] [address] PCP - General Family Medicine 09/25/22 documented as of this encounter
--- OUTSIDE RECORDS SUMMARY | 2024-11-05 08:41 | XMS_ITS | Encounter Summary ---
Author Organization [employer] Address [address] [place] [address] Care Team Providers Care Clinique Counter Manager Name Role Phone Elaine Braden MD Primary Care Provider [phone] Reason for Visit * Reason Onset Date Comments Appointment Confirmation 06/04/2023 Encounter Details Date Type Department Care Team ([facility] st Contact Info) Description 06/04/2023 Telephone [facility] [address] [place], [place] [phone] Elaine Braden MD [address] [place] [address] Appointment Confirmation Social History Tobacco Use Types Packs/Day Years [...] encounter Miscellaneous Notes * Telephone Encounter - Ashley Ribeiro - 06/04/2023 1:11 PM EDT Tc from pt requesting a call from a nurse to verify an upcoming appt she has schedule at facility off [address] in [place]. Please contact pt at [phone] documented in this encounter Plan of Treatment Not on file documented as of this encounter Visit Diagnoses Not on filedocumented in this encounter Additional Health Concerns Assessment Noted Time PHQ-9 Depression Total Score: 0 04/21/20 11:09 AM EDT documented as of this encounter Care Teams Clinique Counter Manager Relationship Specialty Start Date End Date Elaine Braden MD [address] [place] [id number] PCP - General Family Medicine 09/25/22 documented as of this encounter
--- OUTSIDE RECORDS SUMMARY | 2024-11-05 08:41 | XMS_ITS | Clinical Summary ---
Author Organization [facility] Address [address] [facility] 7[address] [place] [address] Care Team Providers Care Forensic Chemist Name Role Phone Elaine Braden MD Primary Care Provider Allergies No known active allergies Medications Vemlidy 25 MG tablet Take 25 mg by mouth in the morning. 2 Active PARoxetine (Paxil) 10 MG tabletIndications :Perimenopausal Take 1 tablet (10 mg) by mouth in the morning. 30 tablet 2 3 Active MoviPrep 100 g reconstituted solution PLEASE SEE ATTACHED FOR DETAILED DIRECTIONS 3 Active Active Problems Problem Noted Date Diagnosed Date Dependent relative needing care at home 01/07/20 24 Extremely dense tissue of both breasts on mammog chin 06/25/2023 Physical exam 04/22/2023 Assessment & Plan (04/22/2023 1:29 PM EDT): Health maintenance screening: - PHQ-9 negative -lipid: Done - Contraception: not interested -Cervical CA screening: UTD - Colon CA screening: has appt pending for April 2023 - Tobacco use: precontemplative - Breast CA: pending mammo before referral for oncology can follow, prior hx of DCIS Counseled on healthy diet and physical activity. Absence of breast 04/21/2023 Acute pain of left shoulder 04/21/2023 Assessment & Plan (01/07/2024 12:31 PM EDT): Continued pain in left shoulder. Administered steroid injection for relief of pain. F/u if redness, irritation, or swelling at site of injection. Assessment & Plan (07/02/2023 1:02 PM EDT): Improved with rest and time. Normal ROM no need for further w/u. Assessment & Plan (04/22/2023 1:30 PM EDT): Will movement, normal strength, will send Xray Colon cancer screening 10/22/2022 Chronic type B viral hepatitis 11/23/2018 Assessment & Plan (01/07/2024 12:35 PM EDT): Ordering lab work for monitoring of A1c and preventative of DM. Assessment & Plan (07/02/2023 1:03 PM EDT): Has f/up with ID setup, along with q6mo US to monitor for HCC. Assessment & Plan (04/22/2023 1:29 PM EDT): US order for monitoring, last US was done in [facility] 09/2022. Following with ID, still has not had appt with GI Assessment & Plan (10/22/2022 4:53 PM EST): Following with ID and taking Vemlidy, but not with GI, referral placed. Reports getting liver US q 6 months to monitor for HCC. 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 External Provider, [facility] from Last 3 Months Immunizations Name Administration Dates Next Due Influenza injectable quadrivalent preservative f ree 07/09/2017 Influenza, IIV3, injectable 07/13/2008 Pfizer Covid-19 Vaccine 12+ 05/30/2021, Tdap 06/27/2023,10/27/2007 Family History Medical History Relation Name Comments Arthritis Father Hypertension Father Stroke Father Vivien Parkinson White syndrome Father Bone cancer Maternal Grandmother Diabetes Mother Relation Name Status Comments Father Maternal Grandmother Mother Social History Tobacco Use Types Packs/Day Years Used Date Smoking Tobacco: Every Day Cigarettes Passive Smoke Exposure: Never Smokeless Tobacco: Current Tobacco Cessation:Ready to Q uit: Not Asked; Counseling Given: Not Answered Alcohol Use Standard Drinks/Week Comments Never 0 [...] Orientation Straight 07/22/2022 10 :30 AM EDT Last Filed Vital Signs Vital Sign Reading Time Taken Comments Blood Pressure 107/66 01/07/2024 11:16 AM EDT Pulse 78 01/07/2024 11:16 AM EDT Temperature 35.9 ??C (96.7 ??F) 01/07/2024 11:16 AM E DT Respiratory Rate 18 01/07/2024 11:16 AM EDT Oxygen Saturation 98% 01/07/2024 11:16 AM EDT Inhaled Oxygen Concentration - - Weight 50.6 kg (111 lb 9.6 oz) 01/07/2024 11:16 AM EDT Height 161 cm (5' 3.39 ) 01/07/2024 11:16 AM EDT Body Mass Index 19.53 01/07/2024 11:16 AM EDT Plan of Treatment Health Maintenance Due Date Last Done Comments CT Colonography 1973 Colonoscopy 1973 Colorectal Cancer Screening 1973 FIT DNA/Cologuard 1973 FIT 1973 FOBT 1973 HIV Screening 1973 Sigmoidoscopy 1973 Alcohol/Substance Use Screening 1985 Family Planning (PISQ) 1988 Hepatitis A Vaccines (1 of 2 - Risk 2-dose series) 1992 Hepatitis B Vaccines (1 of 3 - 19+ 3-dose series) 1992 Pneumococcal Vaccine: 50+ Years (1 of 2 - PCV) 1992 Zoster Vaccines (1 of 2) 2023 Depression Screening 04/21/2024 04/21/2023, 04/21/20 23 COVID-19 Vaccine ( season) 2024 01/13/2022, 05/30/2021, 05/07/2021 Influenza Vaccine (#1) 2024 07/09/2017, 2007 Diagnostic Breast Imaging 07/06/20242023, 01/05/2024, 07/04/2023, Additional history exists Mammogram 07/06/2024 01/05/2024, 12/21, 07/04/2023, Additional history exists SDOH Screening 12/31/2024 01/01/2024 Tobacco Screening 01/06/2025 01/07/2024 Pap Smear 11/19/2025 11/19/2022 Lipid Panel 10/28/2027 10/28/2022 Cervical Cancer Screening 11/19/2027 HPV/Cotest 11/19/2027 11/19/2022 DTaP/Tdap/Td Vaccines (3 - Td or Tdap) 06/27/2033 06/27/2023, 10/27/2007 RSV Patients and Patients Aged 60 years or older (1 - 1-dose 75+ series) 2048 Hepatitis C Screening Completed 10/20/2023 HIB Vaccines Aged Out No longer eligi ble based on patient's age to complete this topic HPV Vaccines Aged Out No longer eligi ble based on patient's age to complete this topic IPV Vaccines Aged Out No longer eligi ble based on patient's age to complete this topic Meningococcal Vaccine Aged Out No alethea hansa eligible based on patient's age to complete this topic RSV under 20 months Aged Out No longe r eligible based on patient's age to complete this topic Rotavirus Vaccines Aged Out No longer eligible based on patient's age to complete this topic Procedures Procedure Name Priority Date/Time Associated Diagnosis Comments CBC WITH AUTO DIFFERENTIAL Routine 11/05/2024 8:32 AM EST US ABDOMEN COMPLETE Routine 10/15/2024 9 :34 AM EST BI US BREAST COMPLETE LEFT Routine 01/05/2024 Ductal carcinoma in situ (DCIS) of right breast Abnormal mammogram HEPATITIS C VIRAL RNA, QUANTITATIVE, REAL-TIME PCR Routine 10/20/2023 8:07 AM EST IMAGE-GUIDED PAP W/AGE BASED SCR,W/CT/NG/TRICH Routine 11/19/2022 2:09 PM EST Cervical cancer screening Encntr screen for infections w sexl mode of transmiss LIPID PANEL, STANDARD Routine 10/28/2022 10:26 AM EST Encounter for health-related screening from Last 3 Months or Most Recently Relevant to Health Maintenance Results * CBC auto differential (11/05/2024 8:32 AM EST) White Blood Count 8.7 4.8 - 10.8 X10*3/uL [facility] Red Blood Count 5.22 4.20 - 5.50 X10*6/uL [facility] Hemoglobin 14.2 12.0 - 16.0 g/dl [facility] Hematocrit 42.5 37.0 - 47.0 % [facility] Mean Corpuscular Volume 81.4 80.0 - 98.0 fL [facility] Mean Corpuscular Hemoglobin 27.2 27.0 - 33.0 pg [facility] Mean Corpuscular HGB Conc 33.4 31.0 - 35.0 g/dl [facility] Red Cell Distribution Width 14.6 11.0 - 16.0 % [facility] Platelet Count 279 160 - 400 X10*3/uL [facility] Mean Platelet Volume 9.4 9.4 - 12.3 fL [facility] Neutrophils Percent Auto 51.7 45 - 73 % [facility] Imm Gran Pct Auto 0.2 0.0 - 0.4 % [facility] Lymphocytes Percent Auto 38.8 20 - 40 % [facility] Monocytes Percent Auto 7.2 2 - 11 % [facility] Eosinophils Percent Auto 1.2 0 - 4 % [facility] Basophils Percent Auto 0.9 0 - 2 % [facility] NRBC Pct Auto 0.0 0.0 - 0.2 /100WBC [facility] Neutrophils Absolute Auto 4.5 2.0 - 8.3 x10*3/uL [facility] Imm Gran Abs Auto 0.02 0.00 - 0.03 X10*3/uL [facility] Lymphocytes Absolute Auto 3.4 1.2 - 4.9 X10*3/uL [facility] Monocytes Absolute Auto 0.6 0.1 - 1.2 X10*3/uL [facility] Eosinophils Absolute Auto 0.1 0.0 - 0.4 X10*3/uL [facility] Basophils Absolute Auto 0.1 0.0 - 0.2 X10*3/uL [facility] NRBC Abs Auto 0.000 0.0 - 0.012 X10*3/uL [facility] 11/05/2024 8:32 AM EST 11/05/2024 8:32 AM EST us Generic External Data Provider LAB BLOOD ORDERAB LES Final Result [facility] [address] [place] [phone] * US Abdomen Complete (10/15/2024 9:34 AM EST) Anatomical Region Laterality Modality Abdomen Ultrasound 10/15/2024 9:34 AM EST Narrative 10/15/2024 11:06 AM EST ? [facility] ?[address] ?[place] [address] ? Ultrasound Report ? Signed ? Patient: Vince,Gabriela ?MR#: [id number] ?? [id number] ? : 1975 ?Acct:[id number] ? Age/Sex: 49 / F ?ADM Date: 10/15/24 ? Loc: HO.US ? Attending Dr: Haylee Le MD ? Ordering Physician: Haylee Le MD ?? Date of Service: 10/15/24 ?? Procedure(s): US abdomen complete ?? Accession Number(s): [id number] ? cc: Haylee Le MD; Elaine Braden MD ? EXAMINATION: ??US ABDOMEN ? HISTORY: B19.10 - Unspecified viral hepatitis B without hepatic coma ? TECHNIQUE: Real-time grayscale ultrasound imaging of the abdomen was ?? performed and images were reviewed. ? COMPARISON: Comparison is made with the prior examination dated ?? 09/19/2023. ? FINDINGS: ?? Liver: ??The liver is normal in size and demonstrates homogeneous ?? echotexture. ??No focal mass or intrahepatic biliary ductal dilatation ?? is identified. ??There is normal hepatopedal flow in the portal vein. ? Gallbladder and biliary tree: The gallbladder is unremarkable, without ?? evidence of calculi, wall thickening, or pericholecystic fluid. ??There ?? is no sonographic Bergman sign. ??The common bile duct is normal in ?? caliber measuring 2 mm. ? Kidneys: ??The right kidney measures 10.1 cm in length. The left kidney ?? measures 10.5 cm in length. ??The kidneys are unremarkable, without ?? evidence of masses, hydronephrosis, or calculi. ? Pancreas: The pancreatic head, neck, and body are unremarkable. The ?? pancreatic tail is obscured by bowel gas. ? Spleen: The spleen is normal in size and contour, measuring 6.7 cm in ?? length. ? Abdominal aorta and inferior vena cava: The visualized portions of the ?? abdominal aorta and inferior vena cava are normal in caliber. ? There is no free fluid in the abdomen. ? US/US abdomen complete ?? IMPRESSION: ? Unremarkable abdominal ultrasound. ? Electronically signed by: ??José Lion MD ??10/15/2024 11:02 AM EST ? Dictated By: ?José Lion MD ? Signed By: ?<Electronically signed by José Lion MD in OV> ?10/15/24 1102 ? DD/ 0934 ? TD/TT: 10/15/24 0945 ? Senior Quality Engineer: ? Procedure Note Chaka, Image - 10/15/2024 [place] [address] Ultrasound Report Signed Patient: Gabriela ClarkeMR#: [id number] : 1975Acct:[id number] Age/Sex: 49 / FADM Date: 10/15/24 Loc: HO.US Attending Dr: Haylee Le MD Ordering Physician: Haylee Le MD Date of Service: 10/15/24 Procedure(s): US abdomen complete Accession Number(s): [id number] cc: Haylee Le MD; Elaine Braden MD EXAMINATION: US ABDOMEN HISTORY: B19.10 - Unspecified viral hepatitis B without hepatic coma TECHNIQUE: Real-time grayscale ultrasound imaging of the abdomen was performed and images were reviewed. COMPARISON: Comparison is made with the prior examination dated 09/19/2023. FINDINGS: Liver: The liver is normal in size and demonstrates homogeneous echotexture. No focal mass or intrahepatic biliary ductal dilatation is identified. There is normal hepatopedal flow in the portal vein. Gallbladder and biliary tree: The gallbladder is unremarkable, without evidence of calculi, wall thickening, or pericholecystic fluid. There is no sonographic Bergman sign. The common bile duct is normal in caliber measuring 2 mm. Kidneys: The right kidney measures 10.1 cm in length. The left kidney measures 10.5 cm in length. The kidneys are unremarkable, without evidence of masses, hydronephrosis, or calculi. Pancreas: The pancreatic head, neck, and body are unremarkable. The pancreatic tail is obscured by bowel gas. Spleen: The spleen is normal in size and contour, measuring 6.7 cm in length. Abdominal aorta and inferior vena cava: The visualized portions of the abdominal aorta and inferior vena cava are normal in caliber. There is no free fluid in the abdomen. US/US abdomen complete IMPRESSION: Unremarkable abdominal ultrasound. Electronically signed by: José Lion MD 10/15/2024 11:02 AM EST RP Dictated By: José Lion MD Signed By: <Electronically signed by José Lion MD in OV> 10/15/24 1102 DD/ 0934 TD/TT: 10/15/24 0945 Senior Quality Engineer: us [facility] External Provider IMG US PROCEDURES Final Result * BI US Breast Complete Left (01/05/2024) Anatomical Region Laterality Modality Breast Left Ultrasound us [facility] IMG US PROCEDURES Final R esult * Hepatitis C Viral RNA, Quantitative, Real-Time PCR (10/20/2023 8:07 AM EST) Hepatitis C Viral Load <15 NOT DETECTED NOT DETECTED IU/mL [facility] HCV Log PCR <1.18 NOT DETECTED NOT DETECTED Log IU/mL [facility] Comment:This test was perfor med using Real-Time Polymerase ChainReaction.Reportable Range: 15 IU/mL to 100,000,000 IU/mL(1.18 Log IU/mL to 8.00 Log IU/mL).The analytical performance characteristics of thisassay have been determined by [facility].The modifications have not been cleared or approved bythe FDA. This assay has been validated pursuant to theCLIA regulations and is used for clinical purposes.For more information on this test, go to:http://education.[employer]faq/QTJ25v0(This link is being provided for informational/educational purposes only.)THIS TEST WAS PERFORMED AT:[facility] [address] [id number] QUISPE MD 10/20/2023 8:07 AM EST 10/20/2023 8:09 AM EST us Generic External Data Provider LAB BLOOD ORDERAB LES Final Result [facility] [address] [place] [address] [phone] * Image-Guided Pap with Age-Based Screening??with CT/NG,??Trichomonas (11/19/2022 2:09 PM EST) Comment [facility] Comment: This order for age-based cervical cancer and STI screening follows ACOG guidelines(PB 168, 140, RAC798). See individual assays for performing site location. Clinical Information: Routine exam [facility] LMP: 10/18/22 [facility] Prev. PAP: NONE GIVEN [facility] Prev. BX: NONE GIVEN [facility] SOURCE: None given [facility] Statement Of Adequacy: [facility] Comment: Satisfactory for evaluation. Endocervical/transformation zone component absent. Interpretation/Re sult: Negative for intraepithelial lesion or malignancy. [facility] COMMENT: This Pap test has been evaluated with computer assisted technology. [facility] Event Operations Manager: [employer] [facility] Comment: CMG, CT(ASCP) CT screening location: [address] ??[address] (Always Message) [facility] [employer] Comment: EXPLANATORY NOTE: The Pap is a screening test for cervical cancer. It is not a diagnostic test and is subject to false negative and false positive results. It is most reliable when a satisfactory sample, regularly obtained, is submitted with relevant clinical findings and history, and when the Pap result is evaluated along with historic and current clinical information. HPV nRNA E6/E7 Not Detected Not Detected [facility] Comment: Methodology: Travel [employer]ota-Mediated Amplification This assay detects E6/E7 viral messenger RNA (mRNA) from 14 high-risk HPV types (16,18,31,33,35,39,45,51,52,56,58,59,66,68). Cervical sources are required for HPV testing. If a vaginal source from a patient who has had a total hysterectomy with removal of cervix was submitted, please contact the testing laboratory for alternative testing options. For additional information, please refer to http://[employer]faq/MNU460h5 (This link if provided for information/ educational purposes only.) Chlamydia trachomatis RNA, TMA, Urogenital NOT DETECTED NOT DETECTED [facility] Neisseria gonorrhoeae RNA, TMA, Urogenital NOT DETECTED NOT DETECTED [facility] (Always Message) [facility] [employer] Comment: The analytical performance characteristics of this assay, when used to test SurePath(TM) specimens have been determined by [facility]. The modifications have not been cleared or approved by the FDA. This assay has been validated pursuant to the CLIA regulations and is used for clinical purposes. For additional information, please refer to https://[employer]faq/WDX823 (This link is being provided for information/ educational purposes only.) Trichomonas vaginalis, QL, TMA, PAP Vial NOT DETECTED NOT DETECTED [facility] Comment: The analytical performance characteristics of this assay have been determined by [facility]. The modifications have not been cleared or approved by the FDA. This assay has been validated pursuant to the CLIA regulations and is used for clinical purposes. For additional information, please refer to http://[employer] faq/Trichomonastma (This link is being provided for information/ educational purposes only.) Swab 11/19/2022 2:09 PM EST 11/20/2022 8:39 PM EST us [facility] LAB CYTOLOGY ORDERABLES F inal Result [facility] [address], [place] [address] [facility] [place] [facility] [address] [facility], ([address]) [place] [address] * (ABNORMAL) Lipid Panel, Standard (10/28/2022 10:26 AM EST) Cholesterol, Total 152 <200 mg/dL [facility] HDL Cholesterol 36(L) > OR = 50 mg/dL [facility] Triglycerides 126 <150 mg/dL [facility] [employer] [facility] LDL Cholesterol 93 mg/dL (calc) [facility] [employer] [facility] Comment: Reference range: <100 Desirable range <100 mg/dL for primary prevention; ?? <70 mg/dL for patients with CHD or diabetic patients with > or = 2 CHD risk factors. LDL-C is now calculated using the Ernesto calculation, which is a validated novel method providing better accuracy than the Friedewald equation in the estimation of LDL-C. SS et al. JIE. 2013;310(19): 1657-1112 (http://education.[employer]/faq/OZZ205) Chol/HDLC Ratio 4.2 <5.0 (calc) [facility] [place] [facility] Non-HDL Cholesterol 116 <130 mg/dL (calc) [facility] Comment: For patients with diabetes plus 1 major ASCVD risk factor, treating to a non-HDL-C goal of <100 mg/dL (LDL-C of <70 mg/dL) is considered a therapeutic option. Blood Venous blood specimen / Unknown 10/28/2022 10:26 AM EST 10/28/2022 10:27 AM EST Narrative [facility] - 10/29/2022 5:05 AM EST FASTING:YES FASTING: YES us Elaine Braden MD LAB BLOOD ORDERABLES Final Re sult [address], [place] [address] [facility] [place] [facility] [address] [facility], ([address]) [place] [address] from Last 3 Months or Most Recently Relevant to Health Maintenance Insurance [id number] [address] [facility] [address] [facility] [address] [address] Care Teams Forensic Chemist Relationship Specialty Start Date End Date Elaine Braden MD [address] [place] [phone] PCP - General Family Medicine 09/25/22
--- OUTSIDE RECORDS SUMMARY | 2024-11-05 08:41 | XMS_ITS | Encounter Summary ---
Author Organization [facility] Address [address] [facility] 7t [place] [address] Care Team Providers Care In Flight Refueling System Repairer Name Role Phone Elaine Braden MD Primary Care Provider [phone] Reason for Visit * Reason Onset Date Comments Referral 04/23/2023 Encounter Details Date Type Department Care Team ([facility] st Contact Info) Description 04/23/2023 Telephone C [facility] [address] [place], [place] [phone] Elaine Braden MD [address] [place], [place] [phone] Referral Social History Tobacco Use Types Packs/Day Years [...] encounter Miscellaneous Notes * Telephone Encounter - Savanah Montenegro RN - 04/24/2023 3:27 PM EDT Call returned to [facility]. States they received the referral that was placed by PCP. Pt was followed by their practice in the past. Last seen in 2018. Inquiring if there have been any new findings. Consulted with PCP. No new findings. Mammography had been ordered but pt did not f/u. Referred to oncology as pt has not been f/u with in several years. Bronson informed. States the notes from pt's last office visit were reviewed. Per notes, provider's recommendation was for pt to f/u with the breast center, ask for survivorship program. He provided contact number [phone]. He agrees to fax the last office notes to [facility]. Notes received and sent to scan. Will forward to PCP to inform. * Telephone Encounter - Sarah Montenegro - 04/23/2023 4:24 PM EDT Tc from bronson calling in regards to referral to Oncology. Please contact bronson at [phone] documented in this encounter Plan of Treatment Not on file documented as of this encounter Visit Diagnoses Not on filedocumented in this encounter Additional Health Concerns Assessment Noted Time PHQ-9 Depression Total Score: 0 04/21/20 23 11:09 AM EDT documented as of this encounter Care Teams In Flight Refueling System Repairer Relationship Specialty Start Date End Date Elaine Braden MD [address] [place] [phone] PCP - General Family Medicine 09/25/22 documented as of this encounter
--- OUTSIDE RECORDS SUMMARY | 2024-11-05 08:41 | XMS_ITS | Encounter Summary ---
Author Organization [employer] Address [address] [facility] [address] [place] [address] Care Team Providers Care Econometrician Name Role Phone Elaine Braden MD Primary Care Provider [phone] Encounter Details Date Type Department Care Team (Late st Contact Info) Description 10/15/2024 Orders Only [facility] External Provider, [facility] Social History Tobacco Use Types Packs/Day Years [...] Procedure Name Priority Date/Time Associated Diagnosis Comments US ABDOMEN COMPLETE Routine 10/15/2024 9 :34 AM EST documented in this encounter Results * US Abdomen Complete (10/15/2024 9:34 AM EST) Anatomical Region Laterality Modality Abdomen Ultrasound 10/15/2024 9:34 AM EST Narrative 10/15/2024 11:06 AM EST ? [facility] ?[address] ?[place] [address] ? Ultrasound Report ? Signed ? Patient: Vince,Gabriela ?MR#: [id number] ?? [id number] ? : 1975 ?Acct:[id number] ? Age/Sex: 49 / F ?ADM Date: 10/15/24 ? Loc: HO.US ? Attending Dr: Haylee Le MD ? Ordering Physician: Haylee Le MD ?? Date of Service: 10/15/24 ?? Procedure(s): US abdomen complete ?? Accession Number(s): [id number] ? cc: Haylee Le MD; Elaine Braden [...] DD/ 0934 ? TD/TT: 10/15/24 0945 ? Insurance Policy Issue Clerk: ? Procedure Note Donbrandtter, Image - 10/15/2024 [place] [address] Ultrasound Report Signed Patient: Dianna Clarke#: [id number] : 1975Acct:[id number] Age/Sex: 49 / FADM Date: 10/15/24 Loc: HO.US Attending Dr: Haylee Le MD Ordering Physician: Haylee Le MD Date of Service: 10/15/24 Procedure(s): US abdomen complete Accession Number(s): [id number] cc: Haylee Le MD; Elaine Braden MD [...] by: José Lion MD 10/15/2024 11:02 AM [facility] Dictated By: José Lion MD Signed By: <Electronically signed by José Lion MD in OV> 10/15/24 1102 DD/ 0934 TD/TT: 10/15/24 0945 Insurance Policy Issue Clerk: [facility] External Provider IMG US PROCEDURES Final Result documented in this encounter Visit Diagnoses Not on filedocumented in this encounter Additional Health Concerns Assessment Noted Time PHQ-9 Depression Total Score: 0 04/21/20 11:09 AM EDT documented as of this encounter Care Teams Econometrician Relationship Specialty Start Date End Date Elaine Braden MD [address] [place] [address] PCP - General Family Medicine 09/25/22 documented as of this encounter
--- OUTSIDE RECORDS SUMMARY | 2024-11-05 08:41 | XMS_ITS | Encounter Summary ---
Author Organization [employer] Address [address] 7[address] [place] [address] Care Team Providers Care Regulatory Affairs Intern Name Role Phone Elaine Braden MD Primary Care Provider [phone] Encounter Details Date Type Department Care Team (Late st Contact Info) Description 07/07/2023 Abstract [facility] [address] [place] [address] Ronit Rose Social History Tobacco Use Types [...] documented as of this encounter Care Teams Regulatory Affairs Intern Relationship Specialty Start Date End Date Elaine Braden MD [address] [place] [address] PCP - General Family Medicine 09/25/22 documented as of this encounter
--- OUTSIDE RECORDS SUMMARY | 2024-11-05 08:41 | XMS_ITS | Clinical Summary ---
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 Family History Medical History Relation Name Comments Cancer Paternal Aunt Relation Name Status Comments Paternal Aunt Social History Tobacco Use Types Packs/Day Years Used Date Smoking Tobacco: Every Day Cigarettes Smokeless Tobacco: Never Alcohol Use Standard Drinks/Week Comments No 0 (1 standard drink = 0.6 oz pur e alcohol) Sex and Gender Information Value Date Recorded Sex Assigned at Not on file Gender Identity Not on file Sexual Orientation Not on file Last Filed Vital Signs Vital Sign Reading Time Taken Comments Blood Pressure 112/68 09/02/2017 2:42 PM EST Pulse 70 09/02/2017 2:42 PM EST Temperature - - Respiratory Rate - - Oxygen Saturation - - Inhaled Oxygen Concentration - - Weight 48.1 kg (106 lb) 09/02/2017 2:42 PM EST Height 162.6 cm (5' 4 ) 09/02/2017 2:42 PM EST Body Mass Index 18.19 09/02/2017 2:42 PM EST Plan of Treatment Health Maintenance Due Date Last Done Comments Hepatitis B Vaccines (1 of 3 - 3-dose series) 1973 Hepatitis C Screening 1973 COVID-19 Vaccine (#1) 1978 Pneumococcal Vaccine (1 of 2 - PCV) 1979 Depression Screening 1985 Preventative Health Evaluation 1991 DTap / Tdap / Td (1 - Tdap) 1992 Shingrix-Zoster Vaccine (1 of 2) 1992 Cervical Cancer Screening (P ap Smear) 1994 Colon Cancer Screening (Colonoscopy) 2018 Breast Cancer Screening (Mammogram) 2023 Influenza Vaccine (#1) 2024 RSV Ped < 20 months Aged Out No longe r eligible based on patient's age to complete this topic Care Teams Termite Helper Relationship Specialty Start Date End Date Cristin Xie MD [address] [place] [address] [place] [address] PCP - General 09/02/17
[2024-11-05 09:01] LABS: Alanine Aminotransferase 14 U/L (0-31); Albumin Level 4.2 g/dL (3.5-5.0); Alkaline Phosphatase 89 U/L (39-117); Anion Gap 12 (12-20); Aspartate Amino Transferase 19 U/L (5-31); Bilirubin Direct 0.1 mg/dL (0.0-0.5); Bilirubin Total 0.4 mg/dL (0.0-1.0); Blood Urea Nitrogen 11 mg/dL (9-16); Calcium 9.2 mg/dL (8.4-10.2); Carbon Dioxide 27 mmol/L (22-29); Chloride 105 mmol/L (96-108); Estimated Glomerular Filt Rate > 60; Glucose Random 103 mg/dL (60-115); Potassium 3.6 mmol/L (3.3-5.1); Sodium 140 mmol/L (135-145); Total Protein 7.8 g/dL (6.5-8.0)
[2024-11-08 17:43] LABS: Hepatitis B Viral DNA Qn - cp NOT DETECTED Log IU/mL (NOT DETECTED); Hepatitis B Viral DNA Qn-IU/mL NOT DETECTED (NOT DETECTED)
[2024-11-09 22:03] LABS: Hepatitis Delta Antibody NEGATIVE
[2024-11-15 14:34] LABS: FIB-ALT 6 U/L (6-29); FIB-Alpha-2-Macroglobulin 188 mg/dL (106-279); FIB-Apolipoprotein A1 155 mg/dL (101-198); FIB-GGT 18 U/L (3-70); FIB-Haptoglobin 151 mg/dL (43-212); FIB-Total Bilirubin 0.2 mg/dL (0.2-1.2); Liver Fibrosis Score 0.06; Liver Fibrosis Stage F0; Nec Inflam Act Grade A0; Nec Inflam Act Score 0.01; Reference ID 5350139
== END 2024-11-05 08:23 | disposition home or self-care (01) ==
LOC: HO.LAB 08:22
PROVIDERS: PCP Family Medicine; Visit Provider Internal Medicine
DX: B19.10 Unspecified viral hepatitis B without hepatic coma (principal)
CPT/HCPCS: 36415; 80048; 80076; 81596; 85025; 86692; 87517

== ENCOUNTER 2024-12-08 14:22 | Outpatient (AMB) | payer MEDICAID, SELFPAY ==
[2024-12-08 14:34] VITALS: BP 128/76; PULSE 76; O2SAT 98; BMI 18.9
--- NOTE | 2024-12-08 14:34 | MHC.OFFVIS ---
Vital Signs 12/08/24 14:34 Height 5 ft 4 in Weight 110 lb BMI 18.9 BP 128/76 Pulse 76 Pulse Oximetry (%) 98 Intake Visit Reasons: ultrasound abdomen/labs follow up hep b Allergies No Known Allergies Allergy (Verified 12/08/24 14:51) HPI HPI ultrasound abdomen/labs follow up hep b: Details: She is doing well. She has no abdominal pain. [facility] Medical History Breast cancer Hepatitis B Social History Cigarettes Per Day: 6 Years Smoked: 1 Review of Systems Const All systems reviewed & are unremarkable except as noted in HPI and below Physical Exam Vital Signs: Last Vital Signs Pulse 76 12/08/24 14:34 BP 128/76 12/08/24 14:34 Pulse Ox 98 12/08/24 14:34 BMI result Body Mass Index 18.9 Const General: cooperative Orientation/consciousness: patient oriented x3 HEENT Head: Yes normal to inspection Mouth: Normal oral and palatal mucosa present Eyes General: appearance normal, both eyes and all related structures Pupils: Equal, round and reactive pupils present Resp Effort & Inspection: normal respiratory effort Cardio Rate: regular rate Rhythm: regular rhythm GI Palpation (GI): Soft to palpation and nontender General: Yes no CVA tenderness Back/Spine/Pelvis Back: no CVA tenderness Skin General skin exam: no rashes or lesions noted Neuro General: patient oriented x3 Cranial nerves: Yes CN's II-XII intact bilaterally and Yes Equal, round and reactive pupils present Extrem General: Yes normal to inspection Psych Appearance: grossly normal Assessment & Plan Assessment & Plan (1) Hepatitis B: Comment: She has chronic inactive Hepatitis B She has had unremarkable blood work with viral load undetectable and LFTs unremarkable. She is F0 Code(s): B19.10 - Unspecified viral hepatitis B without hepatic coma Category: Medical Plan: See in six months Check labs before visit. Medications: Refilled tenofovir alafenamide (Vemlidy) must administer with a meal/food 25 mg PO QAM 90 tabs 3RF 90 days Coding Level of Care Code Est Pt Level 3 (27750) Diagnoses Hepatitis B B19.10
== END 2024-12-08 15:14 | disposition home or self-care (01) ==
LOC: HO.HID 14:22
PROVIDERS: PCP Family Medicine; Visit Provider Internal Medicine
DX: B19.10 Unspecified viral hepatitis B without hepatic coma (principal)
CPT/HCPCS: 99213

== ENCOUNTER → 2024-12-08 14:22 | Outpatient (BNVA) | payer MEDICAID, SELFPAY | PROVIDERS: PCP Family Medicine; Visit Provider Internal Medicine | DX: B19.10 Unspecified viral hepatitis B without hepatic coma (principal) | CPT/HCPCS: 99212 ==

== ENCOUNTER 2025-06-01 09:07 | Outpatient (REF) | payer MEDICAID, SELFPAY ==
[2025-06-01 09:31] LABS: MANUAL DIFF FLAG NO
[2025-06-01 10:40] LABS: Hematocrit 41.8 % (37.0-47.0); Hemoglobin 13.9 g/dl (12.0-16.0); Imm Gran Abs Auto 0.03 X10*3/uL (0.00-0.03); Imm Gran Pct Auto 0.4 % (0.0-0.4); Lymphocytes Absolute Auto 2.6 X10*3/uL (1.2-4.9); Mean Corpuscular HGB Conc 33.3 g/dl (31.0-35.0); Mean Corpuscular Hemoglobin 27.1 pg (27.0-33.0); Mean Corpuscular Volume 81.5 fL (80.0-98.0); NRBC Abs Auto 0.000 X10*3/uL (0.0-0.012); NRBC Pct Auto 0.0 /100WBC (0.0-0.2); Platelet Count 298 X10*3/uL (160-400); Red Blood Count 5.13 X10*6/uL (4.20-5.50); White Blood Count 7.8 X10*3/uL (4.8-10.8)
--- OUTSIDE RECORDS SUMMARY | 2025-06-01 10:48 | XMS_ITS | Encounter Summary ---
Author Organization [employer] Address [address] 7[address] [place] [address] Care Team Providers Care Appraiser Timber Name Role Phone Elaine Braden MD Primary Care Provider [phone] Encounter Details Date Type Department Care Team (Late st Contact Info) Description 06/25/2024 Orders Only [facility] [address] [place], [place] [phone] Provider, MD Noel Social History Tobacco Use [...] Procedure Name Priority Date/Time Associated Diagnosis Comments MAMMOGRAPHY Routine 01/05/2024 3:35 PM EDT documented in this encounter Results * Hm Mammography (01/05/2024 3:35 PM EDT) Anatomical Region Laterality Modality Other us Historical Provider MD HEALTH MAINTENANCE Final Result documented in this encounter Visit Diagnoses Not on filedocumented in this encounter Additional Health Concerns Assessment Noted Time PHQ-9 Depression Total Score: 0 04/21/20 23 11:09 AM EDT documented as of this encounter Care Teams Appraiser Timber Relationship Specialty Start Date End Date Elaine Braden MD [address] [place] [address] PCP - General Family Medicine 09/25/22 documented as of this encounter
--- OUTSIDE RECORDS SUMMARY | 2025-06-01 10:48 | XMS_ITS | Encounter Summary ---
Author Organization [employer] Address [address] [place] [address] Care Team Providers Care Planer Setup Operator Name Role Phone Elaine Braden MD Primary Care Provider [phone] Encounter Details Date Type Department Care Team (Late st Contact Info) Description 07/07/2023 Abstract [facility] [address] [place], [place] [phone] Ronit Rose Social History Tobacco Use Types [...] documented as of this encounter Care Teams Planer Setup Operator Relationship Specialty Start Date End Date Elaine Braden MD [address] [place] [address] PCP - General Family Medicine 09/25/22 documented as of this encounter
--- OUTSIDE RECORDS SUMMARY | 2025-06-01 10:48 | XMS_ITS | Clinical Summary ---
Author Organization [facility] Address [address] [place] [address] Care Team Providers Care Nephrology Social Worker Name Role Phone Cristin Xie MD Primary [...] Cancer Screening (Mammogram) 2023 Influenza Vaccine (#1) 2025 RSV Ped < 20 months Aged Out No longe r eligible based on patient's age to complete this topic Care Teams Nephrology Social Worker Relationship Specialty Start Date End Date Cristin Xie MD [address] [place] [address] [place] [address] PCP - General 09/02/17
--- OUTSIDE RECORDS SUMMARY | 2025-06-01 10:48 | XMS_ITS | Encounter Summary ---
Author Organization [employer] Address [address] [facility] 7t [place] [address] Care Team Providers Care Labor Delivery Specialist Name Role Phone Elaine Braden MD Primary Care Provider [phone] Encounter Details Date Type Department Care Team ([facility] st Contact Info) Description 04/25/2023 Abstract [employer] [facility] [address] [place], [place] [phone] Elaine Braden MD [address] [place], [place] [phone] Social History Tobacco Use Types Packs/Day Years [...] documented as of this encounter Care Teams Labor Delivery Specialist Relationship Specialty Start Date End Date Elaine Braden MD [address] [place], [place] [phone] PCP - General Family Medicine 09/25/22 documented as of this encounter
--- OUTSIDE RECORDS SUMMARY | 2025-06-01 10:48 | XMS_ITS | Encounter Summary ---
Author Organization [employer] Address [address] [facility] 7t [place] [address] Care Team Providers Care Marina Porter Name Role Phone Elaine Braden MD Primary Care Provider [phone] Reason for Visit * Reason Onset Date Comments Referral 04/23/2023 Encounter Details Date Type Department Care Team ([facility] st Contact Info) Description 04/23/2023 Telephone [facility] [address] [place], [place] [phone] Elaine Braden MD [address] [place] [address] Referral Social History Tobacco Use Types Packs/Day [...] 04/24/2023 3:27 PM EDT Call returned to [facility]. States they received the referral that was [...] for survivorship program. He provided contact number [phone]. He agrees to fax the last office notes to [facility]. Notes received and sent to scan. Will forward to PCP to inform. * Telephone Encounter - Sarah Montenegro - 04/23/2023 4:24 PM EDT Tc from [facility] calling in regards to referral to Oncology. Please contact [facility] at [phone] documented in this encounter Plan of Treatment Not on file documented as of this encounter Visit Diagnoses Not on filedocumented in this encounter Additional Health Concerns Assessment Noted Time PHQ-9 Depression Total Score: 0 04/21/20 11:09 AM EDT documented as of this encounter Care Teams Marina Porter Relationship Specialty Start Date End Date Elaine Braden MD [address] [place] [address] PCP - General Family Medicine 09/25/22 documented as of this encounter
--- OUTSIDE RECORDS SUMMARY | 2025-06-01 10:48 | XMS_ITS | Encounter Summary ---
Author Organization [employer] Address [address] [facility] 7t [place] [address] Care Team Providers Care Fire Equipment Repairer Inspector Name Role Phone Elaine Braden MD Primary Care Provider Reason for Visit * Reason Onset Date Comments Appointment Confirmation 06/04/2023 Encounter Details Date Type Department Care Team ([facility] Contact Info) Description 06/04/2023 Telephone [facility] [address] [place], [place] [phone] Elaine Braden MD [address] [place] [address] Appointment Confirmation Social History Tobacco Use Types [...] she has schedule at facility [address] [facility] in [place]. Please contact pt at [phone] documented in this encounter Plan of Treatment Not on file documented as of this encounter Visit Diagnoses Not on filedocumented in this encounter Additional Health Concerns Assessment Noted Time PHQ-9 Depression Total Score: 0 04/21/20 11:09 AM EDT documented as of this encounter Care Teams Fire Equipment Repairer Inspector Relationship Specialty Start Date End Date Elaine Braden MD [address] [place] [address] PCP - General Family Medicine 09/25/22 documented as of this encounter
--- OUTSIDE RECORDS SUMMARY | 2025-06-01 10:48 | XMS_ITS | Clinical Summary ---
Author Organization [employer] Address [address] [facility] 7t [place] [address] Care Team Providers Care Feed Mixer Name Role Phone Elaine Braden MD Primary [...] for monitoring, last US was done in [facility] 09/2022. Following with ID, still has not [...] Encounters Date Type Department Care Team Description 06/01/2025 Orders Only GENERIC EXTERNAL DATA DEPARTMENT Provider, Generic External Data 03/24/2025 Travel 03/17/2025 Patient Outreach [facility] [address] [place] [address] Elaine Braden MD Pre-visit Planning (SDOH screening negative and Tobacco screening positive. ) from Last 3 Months Immunizations Immunization Administration Dates Next Due Influenza injectable quadrivalent [...] housing situation today? I have kelliejennifer ortez 03/17/[address] you li ve. Do you have problems with any of the following? None of the above 03/17/2025 Food Insecurity Answer Date Recorded Within the past 12 months, y ou worried that your food would run out before you got money to buy more: Never True 03/17/2025 Within the past 12 months,th e food you bought just didn't last and you didn't have enough money to get more: Never True Transportation Answer Date Recorded In the past 12 months, has l ack of transportation kept you from medical appts, meetings, work or from getting things needed for daily living? No 03/17/2025 Utilities Answer Date Recorded In the past 12 months, has t he electric, gas, oil or water company threatened to shut off services in your home? No 03/17/2025 Depression Answer Date Recorded Patient Health Questionnaire-2 Score 0 04/21/2023 Internet Access Answer Date Recorded Internet Access Q1 Yes 03/17/2025 Internet Access Q2 Not on file 03/17/2025 Comments Unknown Sex and Gender Information Value Date Recorded Sex Assigned at Female 07/22/2022 10:30 AM EDT Legal Sex Female 10:30 AM EDT Gender Identity Female 07/22/2022 10:30 AM EDT Sexual Orientation Straight 07/22/2022 10 :30 AM EDT Last Filed Vital Signs Vital Sign Reading Time Taken Comments Blood Pressure 109/63 03/24/2025 12:53 PM EDT Pulse 60 03/24/2025 12:53 PM EDT Temperature 36.8 C (98.2 F) 03/24/2025 12:53 PM EDT Respiratory Rate 18 03/24/2025 12:53 PM EDT Oxygen Saturation 98% 03/24/2025 12:53 PM EDT Inhaled Oxygen Concentration - - Weight 46.3 kg (102 lb) 03/24/2025 12:53 PM EDT Height 161 cm (5' 3.39 ) 03/24/2025 12:53 PM EDT Body Mass Index 17.85 03/24/2025 12:53 PM EDT Plan of Treatment Health Maintenance Due Date Last Done Comments CT Colonography 1973 Colonoscopy 1973 Colorectal Cancer Screening 1973 FIT DNA/Cologuard 1973 FIT 1973 FOBT 1973 HIV Screening 1973 Sigmoidoscopy 1973 Disability Screening 1973 Alcohol/Substance Use Screening 1985 Family Planning (PISQ) 1988 Hepatitis A Vaccines (1 of 2 - Risk 2-dose series) 1992 Hepatitis B Vaccines (1 of 3 - 19+ 3-dose series) 1992 Pneumococcal Vaccine: 50+ Years (1 of 2 - PCV) 1992 Zoster Vaccines (1 of 2) 2023 Depression Screening 04/21/2024 04/21/2023, 04/21/20 23 Diagnostic Breast Imaging 07/06/20242023, 01/05/2024, 07/04/2023, Additional history exists Mammogram 07/06/2024 01/05/2024, 12/21, 07/04/2023, Additional history exists COVID-19 Vaccine ( season) 2025 01/13/2022, 05/30/2021, 05/07/2021 Influenza Vaccine (#1) 2025 07/09/2017, 2007 Pap Smear 11/19/2025 11/19/2022 SDOH Screening 03/17/2026 03/17/2025 Tobacco Screening 03/17/2026 03/17/2025 Lipid Panel 10/28/2027 10/28/2022 Cervical Cancer Screening [...] patient's age to complete this topic Meningococcal B Vaccine Aged Out No l onger eligible based on patient's age to complete [...] Diagnosis Comments CBC WITH AUTO DIFFERENTIAL Routine 06/01/2025 9:29 AM EDT BI US BREAST COMPLETE LEFT Routine 01/05/2024 [...] Health Maintenance Results * CBC auto differential (06/01/2025 9:29 AM EDT) White Blood Count 7.8 4.8 - 10.8 X10*3/uL [facility] Red Blood Count 5.13 4.20 - 5.50 X10*6/uL [facility] Hemoglobin 13.9 12.0 - 16.0 g/dl [facility] Hematocrit 41.8 37.0 - 47.0 % [facility] Mean Corpuscular Volume 81.5 80.0 - 98.0 fL [facility] Mean Corpuscular Hemoglobin 27.1 27.0 - 33.0 pg [facility] Mean Corpuscular HGB Conc 33.3 31.0 - 35.0 g/dl [facility] Red Cell Distribution Width 14.3 11.0 - 16.0 % [facility] Platelet Count 298 160 - 400 X10*3/uL [facility] Mean Platelet Volume 10.4 9.4 - 12.3 fL [facility] Neutrophils Percent Auto 55.3 45 - 73 % [facility] Imm Gran Pct Auto 0.4 0.0 - 0.4 % [facility] Lymphocytes Percent Auto 33.4 20 - 40 % [facility] Monocytes Percent Auto 8.6 2 - 11 % [facility] Eosinophils Percent Auto 1.4 0 - 4 % [facility] Basophils Percent Auto 0.9 0 - 2 % [facility] NRBC Pct Auto 0.0 0.0 - 0.2 /100WBC [facility] Neutrophils Absolute Auto 4.3 2.0 - 8.3 x10*3/uL [facility] Imm Gran Abs Auto 0.03 0.00 - 0.03 X10*3/uL [facility] Lymphocytes Absolute Auto 2.6 1.2 - 4.9 X10*3/uL [facility] Monocytes Absolute Auto 0.7 0.1 - 1.2 X10*3/uL [facility] Eosinophils Absolute Auto 0.1 0.0 - 0.4 X10*3/uL [facility] Basophils Absolute Auto 0.1 0.0 - 0.2 X10*3/uL [facility] NRBC Abs Auto 0.000 0.0 - 0.012 X10*3/uL [facility] 06/01/2025 9:29 AM EDT 06/01/2025 9:29 AM EDT us Generic External Data Provider LAB BLOOD ORDERAB LES Final Result Performing Organization Address [facility]/ZIP Co de Phone Number [facility] [address] [place] [phone] * BI US Breast Complete Left (01/05/2024) Anatomical Region Laterality Modality Breast Left Ultrasound us Suzan Daley CN IMG US PROCEDURES Final R esult * Hepatitis C Viral RNA, Quantitative, Real-Time PCR (10/20/2023 8:07 AM EST) Hepatitis C Viral Load <15 NOT DETECTED NOT DETECTED IU/mL [facility] HCV Log PCR <1.18 NOT DETECTED NOT DETECTED Log IU/mL [facility] Comment:This test was perfor med using Real-Time Polymerase ChainReaction.Reportable Range: 15 IU/mL to 100,000,000 IU/mL(1.18 Log IU/mL to 8.00 Log IU/mL).The analytical performance characteristics of thisassay have been determined by [facility].The modifications have not been cleared or approved bythe FDA. This assay has been validated pursuant to theCLIA regulations and is used for clinical purposes.For more information on this test, go to:http://education.[employer]/faq/EXB84w1(This link is being provided for informational/educational purposes only.)THIS TEST WAS PERFORMED AT:5[employer] [place] [id number] QUISPE MD 10/20/2023 8:07 AM EST 10/20/2023 8:09 AM EST us Generic External Data Provider LAB BLOOD ORDERAB LES Final Result Performing Organization Address [facility]/ZIP Co de Phone Number [facility] [address] [place] [phone] * Image-Guided Pap with Age-Based Screening??with CT/NG,??Trichomonas (11/19/2022 2:09 PM EST) Comment [facility] Comment: This order for age-based cervical cancer and STI screening follows ACOG guidelines(PB 168, 140, PEH293). See individual assays for performing site location. Clinical Information: Routine exam [facility] LMP: 10/18/22 [facility] [place] [facility] Prev. PAP: NONE GIVEN [employer] Prev. BX: NONE GIVEN [employer] SOURCE: None given [facility] Statement Of Adequacy: [facility] Comment: Satisfactory for evaluation. Endocervical/transformation zone component absent. Interpretation/Re sult: Negative for intraepithelial lesion or malignancy. [facility] COMMENT: This Pap test has been evaluated with computer assisted technology. [facility] Emanations Analysis Technician: Blanca advisorCONNECT Comment: CMG, CT(ASCP) CT screening location: [place] [address] (Always Message) [email or web address] [email or web address] Comment: EXPLANATORY NOTE: The Pap is a [...] HPV nRNA E6/E7 Not Detected Not Detected [facility] Comment: Methodology: Carb[employer] Expert-Mediated Amplification This assay detects E6/E7 viral messenger RNA (mRNA) from 14 high-risk HPV types (16,18,31,33,35,39,45,51,52,56,58,59,66,68). Cervical sources are required for HPV testing. If a vaginal source from a patient who has had a total hysterectomy with removal of cervix was submitted, please contact the testing laboratory for alternative testing options. For additional information, please refer to http://education.Protalex/faq/WCM231s4 (This link if provided for information/ educational purposes only.) Chlamydia trachomatis RNA, TMA, Urogenital NOT DETECTED NOT DETECTED [facility] Neisseria gonorrhoeae RNA, TMA, Urogenital NOT DETECTED NOT DETECTED [facility] (Always Message) [facility] Comment: The analytical performance characteristics of this assay, when used to test SurePath(TM) specimens have been determined by [facility]. The modifications have not been cleared or approved by the FDA. This assay has been validated pursuant to the CLIA regulations and is used for clinical purposes. For additional information, please refer to https://[facility]/faq/CRH009 (This link is being provided for information/ educational purposes only.) Trichomonas vaginalis, QL, TMA, PAP Vial NOT DETECTED NOT DETECTED [facility] Comment: The analytical performance characteristics of this assay have been determined by [facility]. The modifications have not been cleared or approved by the FDA. This assay has been validated pursuant to the CLIA regulations and is used for clinical purposes. For additional information, please refer to http://[facility].[employer]/ faq/Trichomonastma (This link is being provided for information/ educational purposes only.) Swab 11/19/2022 2:09 PM EST 11/20/2022 8:39 PM EST [facility] CYTOLOGY ORDERABLES F inal Result [facility] [address], [place] [address] [facility] [address] [facility], ([address]) [place] [address] * (ABNORMAL) Lipid Panel, Standard (10/28/2022 10:26 AM EST) Cholesterol, Total 152 <200 mg/dL [facility] HDL Cholesterol 36(L) > OR = 50 mg/dL [facility] Triglycerides 126 <150 mg/dL [facility] LDL Cholesterol 93 mg/dL (calc) [facility] Comment: Reference range: <100 Desirable range <100 mg/dL for primary prevention; <70 mg/dL for patients with CHD or diabetic patients with > or = 2 CHD risk factors. LDL-C is now calculated using the Ernesto calculation, which is a validated novel method providing better accuracy than the Friedewald equation in the estimation of LDL-C. Martin ALCALA et al. JIE. 2013;310(19): 6080-9881 (http://education.[employer]/faq/WMO672) Chol/HDLC Ratio 4.2 <5.0 (calc) [facility] Non-HDL Cholesterol 116 <130 mg/dL (calc) [facility] Comment: For patients with diabetes plus 1 major ASCVD risk factor, treating to a non-HDL-C goal of <100 mg/dL (LDL-C of <70 mg/dL) is considered a therapeutic option. Blood Venous blood specimen / Unknown 10/28/2022 10:26 AM EST 10/28/2022 10:27 AM EST Narrative [facility] - 10/29/2022 5:05 AM EST FASTING:YES FASTING: YES us Elaine Braden MD LAB BLOOD ORDERABLES Final Re sult [facility] [address], [place] [address] [facility] [address] [facility], ([address]) [place] [address] from Last 3 Months or Most Recently Relevant to Health Maintenance Insurance [id number] C3 Care Teams Feed Mixer Relationship Specialty Start Date End Date Elaine Braden MD [address] [place] [phone] PCP - General Family Medicine 09/25/22
--- OUTSIDE RECORDS SUMMARY | 2025-06-01 10:48 | XMS_ITS | Encounter Summary ---
Author Organization [employer] Address [address] [facility] [address] [place] [address] Care Team Providers Care Smelting Engineer Name Role Phone Elaine Braden MD Primary Care Provider [phone] Reason for Visit * Reason Onset Date Comments Returning Call 01/01/2024 Encounter Details Date Type Department Care Team ([facility] st Contact Info) Description 01/01/2024 Telephone [facility] MEDICINE [address] [place] [address] Elaine Braden MD [address] [place], [place] [phone] Returning Call Social History Tobacco Use Types [...] Direct contactinformation provided. Please contact pt at [phone]. documented in this encounter Plan of Treatment Not on file documented as of this encounter Visit Diagnoses Not on filedocumented in this encounter Additional Health Concerns Assessment Noted Time PHQ-9 Depression Total Score: 0 04/21/20 23 11:09 AM EDT documented as of this encounter Care Teams Smelting Engineer Relationship Specialty Start Date End Date Elaine Braden MD [address] [place] [address] PCP - General Family Medicine 09/25/22 documented as of this encounter
--- OUTSIDE RECORDS SUMMARY | 2025-06-01 10:48 | XMS_ITS | Encounter Summary ---
Author Organization [employer] Address [address] [facility] [address] [place] [address] Care Team Providers Care Fighter Pilot Name Role Phone Elaine Braden MD Primary Care Provider [phone] Encounter Details Date Type Department Care Team (Late st Contact Info) Description 08/18/2023 Abstract [facility] MEDICINE [address] [place], [place] [phone] Ronit Rose Social History Tobacco Use Types [...] documented as of this encounter Care Teams Fighter Pilot Relationship Specialty Start Date End Date Elaine Braden MD [address] [place] [address] PCP - General Family Medicine 09/25/22 documented as of this encounter
--- OUTSIDE RECORDS SUMMARY | 2025-06-01 10:48 | XMS_ITS | Encounter Summary ---
Author Organization [employer] Address [address] [facility] 7t [place] [address] Care Team Providers Care Lecturer Of Portuguese Name Role Phone Elaine Braden MD Primary Care Provider [phone] Encounter Details Date Type Department Care Team ([facility] st Contact Info) Description 06/01/2025 Orders Only GENERIC EXTERNAL DATA DEPARTMENT Provider, Generic External Data Social History Tobacco Use Types Packs/Day Years [...] AUTO DIFFERENTIAL Routine 06/01/2025 9:29 AM EDT documented in this encounter Results * CBC auto differential (06/01/2025 9:29 AM EDT) White Blood Count 7.8 4.8 - 10.8 X10*3/uL [facility] Red Blood Count 5.13 4.20 - 5.50 X10*6/uL [facility] Hemoglobin 13.9 12.0 - 16.0 g/dl [facility] Hematocrit 41.8 37.0 - 47.0 % [facility] Mean Corpuscular Volume 81.5 80.0 - 98.0 fL [facility] Mean Corpuscular Hemoglobin 27.1 27.0 - 33.0 pg [facility] Mean Corpuscular HGB Conc 33.3 31.0 - 35.0 g/dl [facility] Red Cell Distribution Width 14.3 11.0 - 16.0 % [facility] Platelet Count 298 160 - 400 X10*3/uL [facility] Mean Platelet Volume 10.4 9.4 - 12.3 fL [facility] Neutrophils Percent Auto 55.3 45 - 73 % [facility] Imm Gran Pct Auto 0.4 0.0 - 0.4 % [facility] Lymphocytes Percent Auto 33.4 20 - 40 % [facility] Monocytes Percent Auto 8.6 2 - 11 % [facility] Eosinophils Percent Auto 1.4 0 - 4 % [facility] Basophils Percent Auto 0.9 0 - 2 % [facility] NRBC Pct Auto 0.0 0.0 - 0.2 /100WBC [facility] Neutrophils Absolute Auto 4.3 2.0 - 8.3 x10*3/uL [facility] Imm Gran Abs Auto 0.03 0.00 - 0.03 X10*3/uL [facility] Lymphocytes Absolute Auto 2.6 1.2 - 4.9 X10*3/uL [facility] Monocytes Absolute Auto 0.7 0.1 - 1.2 X10*3/uL [facility] Eosinophils Absolute Auto 0.1 0.0 - 0.4 X10*3/uL [facility] Basophils Absolute Auto 0.1 0.0 - 0.2 X10*3/uL [facility] NRBC Abs Auto 0.000 0.0 - 0.012 X10*3/uL [facility] 06/01/2025 9:29 AM EDT 06/01/2025 9:29 AM EDT us Generic External Data Provider LAB BLOOD ORDERAB LES Final Result [facility] [address] [place] [phone] documented in this encounter Visit Diagnoses Not on filedocumented in this encounter Additional Health Concerns Assessment Noted Time PHQ-9 Depression Total Score: 0 04/21/20 23 11:09 AM EDT documented as of this encounter Care Teams Lecturer Of Portuguese Relationship Specialty Start Date End Date Elaine Braden MD [address] [place] [phone] PCP - General Family Medicine 09/25/22 documented as of this encounter
[2025-06-01 10:59] LABS: INTERNATIONAL NORM RATIO 1.0 (0.9-1.1); Prothrombin Time 11.9 SEC (10.9-12.4)
[2025-06-01 11:15] LABS: Alanine Aminotransferase 14 U/L (0-31); Albumin Level 4.7 g/dL (3.5-5.0); Alkaline Phosphatase 90 U/L (39-117); Anion Gap 13 (12-20); Aspartate Amino Transferase 22 U/L (5-31); Blood Urea Nitrogen 11 mg/dL (9-16); Calcium 9.4 mg/dL (8.4-10.2); Carbon Dioxide 28 mmol/L (22-29); Chloride 105 mmol/L (96-108); Estimated Glomerular Filt Rate > 60; Potassium 4.1 mmol/L (3.3-5.1); Sodium 142 mmol/L (135-145); Total Protein 7.9 g/dL (6.5-8.0)
[2025-06-02 13:28] LABS: Hepatitis B Viral DNA Qn - cp <1.00 DETECTED Log IU/mL (NOT DETECTED); Hepatitis B Viral DNA Qn-IU/mL <10 DETECTED IU/mL (NOT DETECTED)
[2025-06-07 23:48] LABS: FIB-ALT 8 U/L (6-29); FIB-Alpha-2-Macroglobulin 194 mg/dL (106-279); FIB-Apolipoprotein A1 168 mg/dL (101-198); FIB-GGT 17 U/L (3-70); FIB-Haptoglobin 201 mg/dL (43-212); FIB-Total Bilirubin 0.4 mg/dL (0.2-1.2); Liver Fibrosis Score 0.08; Liver Fibrosis Stage F0; Nec Inflam Act Grade A0; Nec Inflam Act Score 0.01
== END 2025-06-01 09:08 | disposition home or self-care (01) ==
LOC: HO.LAB 09:07
PROVIDERS: PCP Family Medicine; Visit Provider Internal Medicine
DX: B19.10 Unspecified viral hepatitis B without hepatic coma (principal)
CPT/HCPCS: 36415; 80048; 80076; 81596; 85025; 85610; 86692; 87517

== ENCOUNTER 2025-06-06 14:37 | Outpatient (AMB) | payer MEDICAID, SELFPAY ==
[2025-06-06 14:53] VITALS: BP 120/70; PULSE 62; O2SAT 98; BMI 18.2
--- NOTE | 2025-06-06 14:53 | MHC.OFFVIS ---
Vital Signs 06/06/25 14:53 Height 5 ft 4 in Weight 106 lb BMI 18.2 BP 120/70 Pulse 62 Pulse Oximetry (%) 98 Intake Visit Reasons: 6 mth follow up Allergies No Known Allergies Allergy (Verified 06/06/25 14:54) HPI Comments Details: History of Present Illness The patient is a 49-year-old female presenting with chronic Hepatitis B. She is under regular monitoring and receives follow-up every six months. Her last ultrasound in September 2024 was unremarkable for any hepatic tumors or cirrhosis, and her fibrosis scores have been consistently normal. She is compliant with her Vemlidy regimen, taking 25 mg daily with a prescription covering 90 days with three refills. Her viral load was determined to be negative before this appointment, and the fibrosis score is pending. The patient reports her condition as stable without any new concerns. Review of Systems - General: Denies any new symptoms. - Gastrointestinal: Denies abdominal pain, jaundice, or changes in bowel habits. - Respiratory: Denies cough, shortness of breath. - Cardiovascular: Denies chest pain or palpitations. - Skin: Denies rashes or itching; reports some evidence of telangiectasia. Physical Exam - Vitals- Stable - Oropharynx- Clear - Respiratory- Lungs clear - Cardiovascular- Regular heart rate and rhythm - Abdomen- Soft, non-tender - Extremities- Non-tender - Skin- Evidence of telangiectasia Results - Labs: Hepatitis B viral load - Negative - Tests: Pending fibrosis score Plan Patient was informed and verbally consented to the use of an ambient scribe for clinic note documentation during this visit. 1. Chronic Hepatitis B The patient will continue with Vemlidy 25 mg daily, with prescriptions maintained for ongoing antiviral therapy. Recent negative hepatitis B viral load indicates stability in viral suppression. Further assessments are planned in six months, including hepatitis B viral load, fibrosis score, LFTs, basic metabolic panel, and CBC. Ongoing monitoring for hepatic health and medication compliance is crucial. Discussion Notes I discussed with the patient that her viral load is currently negative, which is consistent with effective management of her chronic Hepatitis B using Vemlidi 25 mg daily. We agreed to continue this regimen and scheduled a follow-up in six months to check her viral load, fibrosis score, liver function tests, basic metabolic panels, and a CBC to ensure comprehensive monitoring of her condition. We talked about the importance of medication adherence and regular follow-up visits to watch for any changes in her health status, possible progression, or side effects. Medical Decision Making The patient's chronic Hepatitis B remains stable with a negative viral load on her current antiviral regimen of Vemlidi. With prior imaging and fibrosis scores indicating no significant progression or cirrhosis development, I will maintain the current management plan and monitor hepatic function in six months. The goal is to ensure viral suppression and assess hepatic health through routine laboratory evaluations. Emphasis on adherence and continued follow-up will help detect any changes in her condition early. Patient Instructions - Continue taking Vemlidi 25 mg daily as prescribed. - Keep follow-up appointments for laboratory tests and assessments in six months. - Report any new symptoms such as jaundice or fatigue immediately. - Maintain a healthy lifestyle to support liver function. REPLACED BY [facility] Medical History Breast cancer Hepatitis B Social History Cigarettes Per Day: 6 Years Smoked: 1 Physical Exam Vital Signs: Last Vital Signs Pulse 62 06/06/25 14:53 BP 120/70 06/06/25 14:53 Pulse Ox 98 06/06/25 14:53 BMI result Body Mass Index 18.2 Assessment & Plan Assessment & Plan (1) Hepatitis B: Comment: She has chronic inactive Hepatitis B She has had unremarkable blood work with viral load undetectable and LFTs unremarkable. She is F0 Code(s): B19.10 - Unspecified viral hepatitis B without hepatic coma Category: Medical Plan: n/a Orders: Orders Liver Fibrosis Pnl 6 Months B19.10 - Unspecified viral hepatitis B without hepatic coma Hepatitis B Viral DNA Qn 6 Months B19.10 - Unspecified viral hepatitis B without hepatic coma Liver Panel 6 Months B19.10 - Unspecified viral hepatitis B without hepatic coma Complete Blood Count Auto Diff 6 Months B19.10 - Unspecified viral hepatitis B without hepatic coma Creatinine 6 Months B19.10 - Unspecified viral hepatitis B without hepatic coma US abdomen complete 6 Months B19.10 - Unspecified viral hepatitis B without hepatic coma Hepatitis Delta Antibody 6 Months B19.10 - Unspecified viral hepatitis B without hepatic coma Medications: Refilled tenofovir alafenamide (Vemlidy) must administer with a meal/food 25 mg PO QAM 90 tabs 3RF 90 days Coding Level of Care Code Est Pt Level 3 (46668) Diagnoses Hepatitis B B19.10
--- OUTSIDE RECORDS SUMMARY | 2025-06-06 20:03 | XMS_ITS | Encounter Summary ---
Author Organization [employer] Address [address] [facility] 7t [place] [address] Care Team Providers Care Design Lead Name Role Phone Elaine Braden MD Primary Care Provider [phone] Encounter Details Date Type Department Care Team ([facility] st Contact Info) Description 06/01/2025 Orders [...] AUTO DIFFERENTIAL Routine 06/01/2025 9:29 AM EDT HEPATITIS DELTA ANTIBODY TOTAL Routine 06/01/2025 9:29 AM EDT HEPATITIS B VIRUS DNA, QN, REAL TIME PCR Routine 06/01/2025 9:29 AM EDT PROTHROMBIN TIME-INR Routine 06/01/2025 9:29 AM EDT HEPATIC FUNCTION PANEL Routine 06/01/2025 9:29 AM EDT BASIC METABOLIC PANEL Routine 06/01/2025 9:29 AM EDT documented in this encounter Results * Hepatitis??D Virus (HDV) Antibody, Total (06/01/2025 9:29 AM EDT) Hepatitis D Antibody, Total NEGATIVE [facility] Comment:REFERENCE RANGE: NEG ATIVE INTERPRETIVE CRITERIA: NEGATIVE: Antibody not detected POSITIVE: Antibody detectedHDV infection occurs only in association withHBV infection. Detection of HDV total antibodymay indicate acute infection, chronic infection,or past infection with recovery. Measurement ofHDV IgM may help distinguish among these threeinfection categories; however, because HDV IgMmay persist in chronic infection, HDV RNA PCRtesting can also be considered as an aid in thediagnosis and staging of infection.This test was developed and its analyticalperformance characteristics have been determinedby [employer]. It has not been cleared orapproved by FDA. This assay has been validatedpursuant to the CLIA regulations and is used forclinical purposes.THIS TEST WAS PERFORMED AT:[employer]/[facility] [id number] [place] [address]KHIJWSHIRLEY NASCIMENTO MD,PHD,ADAMS 06/01/2025 9:29 AM EDT 06/01/2025 9:29 AM EDT Generic External Data Provider LAB BLOOD ORDERAB LES Final Result Performing Organization Address City/[facility]/ZIP Co de Phone Number [facility] [address] [place] [address] [phone] * (ABNORMAL) Hepatitis B Virus DNA, Quantitative, Real-Time PCR (06/01/2025 9:29 AM EDT) Pathologist [facility] Hepatitis B Viral DNA Qn - cp <1.00 DETECTED( A) NOT DETECTED Log IU/mL [facility] Comment:HBV DNA was detected below 10 IU/mL. Viral nucleicacid detected below this level cannot be quantified bythe assay.This test was performed using Real-Time Polymerase ChainReaction.Reportable Range: 10 IU/mL to 1,000,000,000 IU/mL.(1.00 Log IU/mL to 9.00 Log IU/mL).THIS TEST WAS PERFORMED AT:[facility] [place] [id number] QUISPE MD Hepatitis B Viral DNA Qn-IU/mL <10 DETECTED( A) NOT DETECTED IU/mL [facility] 06/01/2025 9:29 AM EDT 06/01/2025 9:29 AM EDT us Generic External Data Provider LAB BLOOD ORDERAB LES Final Result Performing Organization Address [facility]/ZIP Co de Phone Number [facility] [address] [place] [phone] * Basic Metabolic Panel (06/01/2025 9:29 AM EDT) Pathologist [facility] Sodium 142 135 - 145 mmol/L [facility] Potassium 4.1 3.3 - 5.1 mmol/L [facility] Chloride 105 96 - 108 mmol/L [facility] Carbon Dioxide 28 22 - 29 mmol/L [facility] Anion Gap 13 12 - 20 [facility] Urea Nitrogen (BUN) 11 9 - 16 mg/dL [facility] Creatinine, Serum 0.76 0.5 - 1.4 mg/dL [facility] Estimated Glomerular Filt Rate >60 [facility] Comment:Chronic Kidney Disea se: Estimated GFR < 60 mL/min/1.04i9Cypjbf Kidney Disease: Estimated GFR < 15 mL/min/1.73m2 Glucose 102 60 - 115 mg/dL [facility] Calcium 9.4 8.4 - 10.2 mg/dL [facility] 06/01/2025 9:29 AM EDT 06/01/2025 9:29 AM EDT us Generic External Data Provider LAB BLOOD ORDERAB LES Final Result Performing Organization Address [facility] [[email or web address]] de Phone Number [facility] [address] [place] [phone] * Hepatic Function Panel (06/01/2025 9:29 AM EDT) Bilirubin, Total 0.4 0.0 - 1.0 mg/dL [facility] Bilirubin, Direct 0.1 0.0 - 0.5 mg/dL [facility] Aspartate Amino Transferase 22 5 - 31 U/L [facility] Alanine Aminotransferase 14 0 - 31 U/L [facility] Total Protein 7.9 6.5 - 8.0 g/dL [facility] Albumin Level 4.7 3.5 - 5.0 g/dL [facility] Alkaline Phosphatase 90 39 - 117 U/L [facility] 06/01/2025 9:29 AM EDT 06/01/2025 9:29 AM EDT us Generic External Data Provider LAB BLOOD ORDERAB LES Final Result Performing Organization Address [facility] Co de Phone Number [facility] [address] [place] [address] [phone] * Prothrombin Time-INR (06/01/2025 9:29 AM EDT) [facility] Prothrombin Time 11.9 10.9 - 12.4 SEC [facility] INTERNATIONAL NORM RATIO 1.0 0.9 - 1.1 [facility] Comment:INTERNATIONAL NORMAL IZED RATIO (INR) REFERENCE RANGES Reference RangeFor patients not on anticoagulant therapy: 0.9 - 1.1INR ranges for oral anticoagulanttherapy:For prevention and treatment of venous thrombosis and pulmonary embolism: 2.0 - 3.0For acute myocardial infarction with aspirin therapy: 2.0 - 3.0For acute myocardial infarction without aspirin therapy: 3.0 - 4.0For patients with mechanical prosthetic heart valves: 2.5 - 3.5 06/01/2025 9:29 AM EDT 06/01/2025 9:29 AM EDT Generic External Data Provider LAB BLOOD ORDERAB LES Final Result [facility] [address] [place] [phone] * CBC auto differential (06/01/2025 9:29 AM EDT) [facility] White Blood Count 7.8 4.8 - 10.8 X10*3/uL [facility] Red Blood Count 5.13 4.20 - 5.50 X10*6/uL [facility] Hemoglobin 13.9 12.0 - 16.0 g/dl [facility] Hematocrit 41.8 37.0 - 47.0 % [facility] Mean Corpuscular Volume 81.5 80.0 - 98.0 fL [facility] Mean Corpuscular Hemoglobin 27.1 27.0 - 33.0 pg [facility] Mean Corpuscular HGB Conc 33.3 31.0 - 35.0 g/dl [facility] Red Cell Distribution Width 14.3 11.0 - 16.0 % [facility] Platelet Count 298 160 - 400 X10*3/uL [facility] Mean Platelet Volume 10.4 9.4 - 12.3 fL [facility] Neutrophils Percent Auto 55.3 45 - 73 % [facility] Imm Gran Pct Auto 0.4 0.0 - 0.4 % [facility] Lymphocytes Percent Auto 33.4 20 - 40 % [facility] Monocytes Percent Auto 8.6 2 - 11 % [facility] Eosinophils Percent Auto 1.4 0 - 4 % [facility] Basophils Percent Auto 0.9 0 - 2 % [facility] NRBC Pct Auto 0.0 0.0 - 0.2 /100WBC [facility] Neutrophils Absolute Auto 4.3 2.0 - 8.3 x10*3/uL [facility] Imm Gran Abs Auto 0.03 0.00 - 0.03 X10*3/uL [facility] Lymphocytes Absolute Auto 2.6 1.2 - 4.9 X10*3/uL [facility] Monocytes Absolute Auto 0.7 0.1 - 1.2 X10*3/uL [facility] Eosinophils Absolute Auto 0.1 0.0 - 0.4 X10*3/uL [facility] Basophils Absolute Auto 0.1 0.0 - 0.2 X10*3/uL [facility] NRBC Abs Auto 0.000 0.0 - 0.012 X10*3/uL [facility] 06/01/2025 9:29 AM EDT 06/01/2025 9:29 AM EDT us Generic External Data Provider LAB BLOOD ORDERAB LES Final Result [facility] [address] [place] [phone] documented in this encounter Visit Diagnoses Not on filedocumented in this encounter Additional Health Concerns Assessment Noted Time PHQ-9 Depression Total Score: 0 04/21/20 23 11:09 AM EDT documented as of this encounter Care Teams Design Lead Relationship Specialty Start Date End Date Elanie Braden MD [address] [place] [address] PCP - General Family Medicine 09/25/22 documented as of this encounter
--- OUTSIDE RECORDS SUMMARY | 2025-06-06 20:03 | XMS_ITS | Clinical Summary ---
Author Organization [facility] Address [address] [place] [address] Care Team Providers Care Technical Document Writer Name Role Phone Cristin Xie MD Primary [...] age to complete this topic Care Teams Technical Document Writer Relationship Specialty Start Date End Date Cristin Xie MD [address] [place] [address] [place] [address] PCP - General 09/02/17
--- OUTSIDE RECORDS SUMMARY | 2025-06-06 20:03 | XMS_ITS | Encounter Summary ---
Author Organization [employer] Address [address] [facility] 7t [place] [address] Care Team Providers Care Windows Systems Engineer Name Role Phone Elaine Braden MD Primary Care Provider [phone] Reason for Visit * Reason Onset Date Comments Appointment Confirmation 06/04/2023 Encounter Details Date Type Department Care Team ([facility] Contact Info) Description 06/04/2023 Telephone [facility] [address] [place], [place] [phone] Elaine Braden MD [address] [place] [address] Appointment Confirmation Social History Tobacco Use Types [...] she has schedule at facility [address] [facility] in [place]. Please contact pt at [phone] documented in this encounter Plan of Treatment Not on file documented as of this encounter Visit Diagnoses Not on filedocumented in this encounter Additional Health Concerns Assessment Noted Time PHQ-9 Depression Total Score: 0 04/21/20 11:09 AM EDT documented as of this encounter Care Teams Windows Systems Engineer Relationship Specialty Start Date End Date Elaine Braden MD [address] [place] [phone] PCP - General Family Medicine 09/25/22 documented as of this encounter
--- OUTSIDE RECORDS SUMMARY | 2025-06-06 20:03 | XMS_ITS | Encounter Summary ---
Author Organization [employer] Address [address] [facility] [address] 7[address] [place] [address] Care Team Providers Care Qa Tech Name Role Phone Elaine Braden MD Primary Care Provider [phone] Encounter Details Date Type Department Care Team (Late st Contact Info) Description 06/25/2024 Orders Only [facility] [address] [place], [place] [phone] Provider, MD Noel Social History Tobacco Use [...] documented as of this encounter Care Teams Qa Tech Relationship Specialty Start Date End Date Elaine Braden MD [address] [place] [address] PCP - General Family Medicine 09/25/22 documented as of this encounter
--- OUTSIDE RECORDS SUMMARY | 2025-06-06 20:03 | XMS_ITS | Clinical Summary ---
Author Organization [employer] Address [address] [facility] 7t [place] [address] Care Team Providers Care Home Health Care Respiratory Therapist Name Role Phone Elaine Braden MD Primary Care Provider [phone] Allergies No known active allergies Medications Vemlidy [...] for monitoring, last US was done in [facility] 09/2022. Following with ID, still has not [...] External Data 03/24/2025 Travel 03/17/2025 Patient Outreach [facility] [address] [place] [address] Elaine Braden MD Pre-visit Planning [...] Procedure Name Priority Date/Time Associated Diagnosis Comments HEPATITIS DELTA ANTIBODY TOTAL Routine 06/01/2025 9:29 AM EDT HEPATITIS B VIRUS DNA, QN, REAL TIME PCR Routine 06/01/2025 9:29 AM EDT BASIC METABOLIC PANEL Routine 06/01/2025 9:29 AM EDT HEPATIC FUNCTION PANEL Routine 06/01/2025 9:29 AM EDT PROTHROMBIN TIME-INR Routine 06/01/2025 9:29 AM EDT CBC WITH AUTO DIFFERENTIAL Routine 06/01/2025 9:29 [...] Blood Count 7.8 4.8 - 10.8 X10*3/uL [facility] Red Blood Count 5.13 4.20 - 5.50 X10*6/uL [facility] Hemoglobin 13.9 12.0 - 16.0 g/dl [facility] Hematocrit 41.8 37.0 - 47.0 % [facility] Mean Corpuscular Volume 81.5 80.0 - 98.0 fL [facility] Mean Corpuscular Hemoglobin 27.1 27.0 - 33.0 pg [facility] Mean Corpuscular HGB Conc 33.3 31.0 - 35.0 g/dl [facility] Red Cell Distribution Width 14.3 11.0 - 16.0 % [facility] Platelet Count 298 160 - 400 X10*3/uL [facility] Mean Platelet Volume 10.4 9.4 - 12.3 fL [facility] Neutrophils Percent Auto 55.3 45 - 73 % [facility] Imm Gran Pct Auto 0.4 0.0 - 0.4 % [facility] Lymphocytes Percent Auto 33.4 20 - 40 % [facility] Monocytes Percent Auto 8.6 2 - 11 % [facility] Eosinophils Percent Auto 1.4 0 - 4 % [facility] Basophils Percent Auto 0.9 0 - 2 % [facility] NRBC Pct Auto 0.0 0.0 - 0.2 /100WBC [facility] Neutrophils Absolute Auto 4.3 2.0 - 8.3 x10*3/uL [facility] Imm Gran Abs Auto 0.03 0.00 - 0.03 X10*3/uL [facility] Lymphocytes Absolute Auto 2.6 1.2 - 4.9 X10*3/uL [facility] Monocytes Absolute Auto 0.7 0.1 - 1.2 X10*3/uL [facility] Eosinophils Absolute Auto 0.1 0.0 - 0.4 X10*3/uL [facility] Basophils Absolute Auto 0.1 0.0 - 0.2 X10*3/uL [facility] NRBC Abs Auto 0.000 0.0 - 0.012 X10*3/uL [facility] 06/01/2025 9:29 AM EDT 06/01/2025 9:29 AM EDT us Generic External Data Provider LAB BLOOD ORDERAB LES Final Result [facility] [address] [place] [phone] * Hepatitis??D Virus (HDV) Antibody, Total (06/01/2025 9:29 AM EDT) Hepatitis D Antibody, Total NEGATIVE [facility] Comment:REFERENCE RANGE: NEG ATIVE INTERPRETIVE [...] and its analyticalperformance characteristics have been determinedby [employer]. It has not been cleared orapproved by FDA. This assay has been validatedpursuant to the CLIA regulations and is used forclinical purposes.THIS TEST WAS PERFORMED AT:[facility] [id number] [place] [address]NEEAESHIRLEY NASCIMENTO MD,PHD,ADAMS 06/01/2025 9:29 AM EDT 06/01/2025 9:29 AM EDT Generic External Data Provider LAB BLOOD ORDERAB LES Final Result Performing Organization Address [facility] de Phone Number [facility] [address] [place] [phone] * (ABNORMAL) Hepatitis B Virus DNA, Quantitative, Real-Time PCR (06/01/2025 9:29 AM EDT) [facility] Hepatitis B Viral DNA Qn - cp <1.00 DETECTED( A) NOT DETECTED Log IU/mL [facility] Comment:HBV DNA was detected below 10 IU/mL. Viral nucleicacid detected below this level cannot be quantified bythe assay.This test was performed using Real-Time Polymerase ChainReaction.Reportable Range: 10 IU/mL to 1,000,000,000 IU/mL.(1.00 Log IU/mL to 9.00 Log IU/mL).THIS TEST WAS PERFORMED AT:[facility] [place] [id number] QUISPE MD Hepatitis B Viral DNA Qn-IU/mL <10 DETECTED( A) NOT DETECTED IU/mL [facility] 06/01/2025 9:29 AM EDT 06/01/2025 9:29 AM EDT Generic External Data Provider LAB BLOOD ORDERAB LES Final Result Performing Organization Address [facility] Co de Phone Number [facility] [address] [place] [phone] * Prothrombin Time-INR (06/01/2025 9:29 AM EDT) [facility] Prothrombin Time 11.9 10.9 - 12.4 SEC [facility] INTERNATIONAL NORM RATIO 1.0 0.9 - 1.1 [facility] Comment:INTERNATIONAL NORMAL IZED RATIO (INR) [...] ORDERAB LES Final Result Performing Organization Address [facility] Co de Phone Number [facility] [address] [place] [phone] * Hepatic Function Panel (06/01/2025 9:29 AM EDT) Bilirubin, Total 0.4 0.0 - 1.0 mg/dL [facility] Bilirubin, Direct 0.1 0.0 - 0.5 mg/dL [facility] Aspartate Amino Transferase 22 5 - 31 U/L [facility] Alanine Aminotransferase 14 0 - 31 U/L [facility] Total Protein 7.9 6.5 - 8.0 g/dL [facility] Albumin Level 4.7 3.5 - 5.0 g/dL [facility] Alkaline Phosphatase 90 39 - 117 U/L [facility] 06/01/2025 9:29 AM EDT 06/01/2025 9:29 AM EDT ALTHIA External Data Provider LAB BLOOD ORDERAB LES Final Result Performing Organization Address [facility] Co de Phone Number [facility] [address] [place] [phone] * Basic Metabolic Panel (06/01/2025 9:29 AM EDT) Sodium 142 135 - 145 mmol/L [facility] Potassium 4.1 3.3 - 5.1 mmol/L [facility] Chloride 105 96 - 108 mmol/L [facility] Carbon Dioxide 28 22 - 29 mmol/L [facility] Anion Gap 13 12 - 20 [facility] Urea Nitrogen (BUN) 11 9 - 16 mg/dL [facility] Creatinine, Serum 0.76 0.5 - 1.4 mg/dL [facility] Estimated Glomerular Filt Rate >60 [facility] Comment:Chronic Kidney Disea se: Estimated GFR < 60 mL/min/1.75m5Avlqqc Kidney Disease: Estimated GFR < 15 mL/min/1.73m2 Glucose 102 60 - 115 mg/dL [facility] Calcium 9.4 8.4 - 10.2 mg/dL [facility] 06/01/2025 9:29 AM EDT 06/01/2025 9:29 AM EDT us Generic External Data Provider LAB BLOOD ORDERAB LES Final Result [facility] [address] [place] [phone] * BI US Breast Complete Left (01/05/2024) Anatomical Region Laterality Modality Breast Left Ultrasound Suzan Daley CNM IMG US PROCEDURES Final R esult * Hepatitis C Viral RNA, Quantitative, Real-Time PCR (10/20/2023 8:07 AM EST) Hepatitis C Viral Load <15 NOT DETECTED NOT DETECTED IU/mL [facility] HCV Log PCR <1.18 NOT DETECTED NOT DETECTED Log IU/mL [facility] Comment:This test was perfor med using Real-Time Polymerase ChainReaction.Reportable Range: 15 IU/mL to 100,000,000 IU/mL(1.18 Log IU/mL to 8.00 Log IU/mL).The analytical performance characteristics of thisassay have been determined by [facility].The modifications have not been cleared or approved bythe FDA. This assay has been validated pursuant to theCLIA regulations and is used for clinical purposes.For more information on this test, go to:http://education.[employer]/faq/JEI35f0(This link is being provided for informational/educational purposes only.)THIS TEST WAS PERFORMED AT:[facility] [address] [id number] QUISPE MD 10/20/2023 8:07 AM EST 10/20/2023 8:09 AM EST us Generic External Data Provider LAB BLOOD ORDERAB LES Final Result [facility] [address] [place] [phone] * Image-Guided Pap with Age-Based Screening??with CT/NG,??Trichomonas (11/19/2022 2:09 PM EST) Comment [facility] Comment: This order for age-based cervical cancer and STI screening follows ACOG guidelines(PB 168, 140, EEF368). See individual assays for performing site location. Clinical Information: Routine exam [facility] LMP: 10/18/22 [facility] Prev. PAP: NONE GIVEN [facility] Prev. BX: NONE GIVEN [employer] SOURCE: None given [facility] Statement Of Adequacy: [facility] Comment: Satisfactory for evaluation. Endocervical/transformation zone component absent. Interpretation/Re sult: Negative for intraepithelial lesion or malignancy. [facility] COMMENT: This Pap test has been evaluated with computer assisted technology. [facility] Women Designer: Blanca Obeo Healtht Comment: CMG, CT(ASCP) CT screening location: [address] [address] (Always Message) [employer] Comment: EXPLANATORY NOTE: The Pap is a [...] HPV nRNA E6/E7 Not Detected Not Detected [facility] Comment: Methodology: Ward Attendant-Mediated Amplification This assay detects E6/E7 viral messenger RNA (mRNA) from 14 high-risk HPV types (16,18,31,33,35,39,45,51,52,56,58,59,66,68). Cervical sources are required for HPV testing. If a vaginal source from a patient who has had a total hysterectomy with removal of cervix was submitted, please contact the testing laboratory for alternative testing options. For additional information, please refer to http://[employer]/faq/KIE116t0 (This link if provided for information/ educational purposes only.) Chlamydia trachomatis RNA, TMA, Urogenital NOT DETECTED NOT DETECTED [facility] Neisseria gonorrhoeae RNA, TMA, Urogenital NOT DETECTED NOT DETECTED [facility] (Always Message) [employer] [facility] Comment: The analytical performance characteristics of this assay, when used to test SurePath(TM) specimens have been determined by [facility]. The modifications have not been cleared or approved by the FDA. This assay has been validated pursuant to the CLIA regulations and is used for clinical purposes. For additional information, please refer to https://[employer]/faq/LNW412 (This link is being provided for information/ educational purposes only.) Trichomonas vaginalis, QL, TMA, PAP Vial NOT DETECTED NOT DETECTED [facility] Comment: The analytical performance characteristics of this assay have been determined by [facility]. The modifications have not been cleared or approved by the FDA. This assay has been validated pursuant to the CLIA regulations and is used for clinical purposes. For additional information, please refer to http://[employer]/ faq/Trichomonastma (This link is being provided for information/ educational purposes only.) Swab 11/19/2022 2:09 PM EST 11/20/2022 8:39 PM EST Suzan Daley CNM LAB CYTOLOGY ORDERABLES F inal Result [facility] [address], [place] [address] [facility] [place] [facility] [address] [facility], ([address]) [place] [address] * (ABNORMAL) Lipid Panel, Standard (10/28/2022 10:26 AM EST) Cholesterol, Total 152 <200 mg/dL [facility] HDL Cholesterol 36(L) > OR = 50 mg/dL [facility] Triglycerides 126 <150 mg/dL [facility] LDL Cholesterol 93 mg/dL (calc) [facility] Comment: Reference range: <100 Desirable range <100 mg/dL for primary prevention; <70 mg/dL for patients with CHD or diabetic patients with > or = 2 CHD risk factors. LDL-C is now calculated using the Ernesto calculation, which is a validated novel method providing better accuracy than the Friedewald equation in the estimation of LDL-C. SS et al. JIE. 2013;310(19): 2218-1994 (http://education.[employer]/faq/IOO931) Chol/HDLC Ratio 4.2 <5.0 (calc) [facility] Non-HDL Cholesterol 116 <130 mg/dL (calc) [facility] Comment: For patients with diabetes plus 1 major ASCVD risk factor, treating to a non-HDL-C goal of <100 mg/dL (LDL-C of <70 mg/dL) is considered a therapeutic option. Blood Venous blood specimen / Unknown 10/28/2022 10:26 AM EST 10/28/2022 10:27 AM EST Narrative [facility] - 10/29/2022 5:05 AM EST FASTING:YES FASTING: YES us Elaine Braden MD LAB BLOOD ORDERABLES Final Re sult [facility] [address], [place] [address] [facility] [place] [facility] [address] [facility], ([address]) [place] [address] from Last 3 Months or Most Recently Relevant to Health Maintenance Insurance [id number] [id number] [facility] C3 Care Teams Home Health Care Respiratory Therapist Relationship Specialty Start Date End Date Elaine Braden MD [address] [place] [phone] PCP - General Family Medicine 09/25/22
--- OUTSIDE RECORDS SUMMARY | 2025-06-06 20:03 | XMS_ITS | Encounter Summary ---
Author Organization [employer] Address [address] [place] [address] Care Team Providers Care General Expeditor Name Role Phone Elaine Braden MD Primary Care Provider [phone] Reason for Visit * Reason Onset Date Comments Returning Call 01/01/2024 Encounter Details Date Type Department Care Team ([facility] st Contact Info) Description 01/01/2024 Telephone [facility] MEDICINE [address] [place] [address] Elaine Braden MD [address] [place], [place] [phone] Returning Call Social History Tobacco Use Types [...] Direct contactinformation provided. Please contact pt at [phone]. documented in this encounter Plan of Treatment Not on file documented as of this encounter Visit Diagnoses Not on filedocumented in this encounter Additional Health Concerns Assessment Noted Time PHQ-9 Depression Total Score: 0 04/21/20 23 11:09 AM EDT documented as of this encounter Care Teams General Expeditor Relationship Specialty Start Date End Date Elaine Braden MD [address] [place] [address] PCP - General Family Medicine 09/25/22 documented as of this encounter
--- OUTSIDE RECORDS SUMMARY | 2025-06-06 20:04 | XMS_ITS | Encounter Summary ---
Author Organization [employer] Address [address] [facility] [address] [place] [address] Care Team Providers Care Newspaper Press Operator Apprentice Name Role Phone Elaine Braden MD Primary Care Provider [phone] Reason for Visit * Reason Onset Date Comments Referral 04/23/2023 Encounter Details Date Type Department Care Team ([facility] st Contact Info) Description 04/23/2023 Telephone [facility] [address] [place], [place] [phone] Elaine Braden MD [address] [place] [address] Referral Social History Tobacco Use Types Packs/Day [...] 04/24/2023 3:27 PM EDT Call returned to [facility]. States they received the referral that was [...] for survivorship program. He provided contact number [phone]. He agrees to fax the last office notes to [facility]. Notes received and sent to scan. Will forward to PCP to inform. * Telephone Encounter - Sarah Montenegro - 04/23/2023 4:24 PM EDT Tc from [facility] calling in regards to referral to Oncology. Please contact [facility] at [phone] documented in this encounter Plan of Treatment Not on file documented as of this encounter Visit Diagnoses Not on filedocumented in this encounter Additional Health Concerns Assessment Noted Time PHQ-9 Depression Total Score: 0 04/21/20 11:09 AM EDT documented as of this encounter Care Teams Newspaper Press Operator Apprentice Relationship Specialty Start Date End Date Elaine Braden MD [address] [place] [id number] PCP - General Family Medicine 09/25/22 documented as of this encounter
--- OUTSIDE RECORDS SUMMARY | 2025-06-06 20:04 | XMS_ITS | Encounter Summary ---
Author Organization [employer] Address [address] [facility] [address] [place] [address] Care Team Providers Care Structural Steel Painter Name Role Phone Elaine Braden MD Primary Care Provider [phone] Encounter Details Date Type Department Care Team ([facility] st Contact Info) Description 04/25/2023 Abstract [facility] [employer] [address] [place], [place] [phone] Elaine Braden MD [address] [place], [place] [phone] Social History Tobacco Use Types Packs/Day Years [...] documented as of this encounter Care Teams Structural Steel Painter Relationship Specialty Start Date End Date Elaine Braden MD [address] [place], [place] [phone] PCP - General Family Medicine 09/25/22 documented as of this encounter
--- OUTSIDE RECORDS SUMMARY | 2025-06-06 20:04 | XMS_ITS | Encounter Summary ---
Author Organization [employer] Address [address] [facility] [address] [address] [place] [address] Care Team Providers Care Architect Internship Name Role Phone Elaine Braden MD Primary Care Provider [phone] Encounter Details Date Type Department Care Team (Late st Contact Info) Description 08/18/[address] [facility] MEDICINE [address] [place], [place] [phone] Ronit Rose Social History Tobacco Use Types [...] documented as of this encounter Care Teams Architect Internship Relationship Specialty Start Date End Date Elaine Braden MD [address] [place] [address] PCP - General Family Medicine 09/25/22 documented as of this encounter
--- OUTSIDE RECORDS SUMMARY | 2025-06-06 20:04 | XMS_ITS | Encounter Summary ---
Author Organization [employer] Address [address] [place] [address] Care Team Providers Care Security Assessor Name Role Phone Elaine Braden MD Primary Care Provider [phone] Encounter Details Date Type Department Care Team (Late st Contact Info) Description 07/07/2023 Abstract [facility] MED[facility]INE [address] [place], [place] [phone] Ronit Rose Social History Tobacco Use Types [...] documented as of this encounter Care Teams Security Assessor Relationship Specialty Start Date End Date Elaine Braden MD [address] [place] [address] PCP - General Family Medicine 09/25/22 documented as of this encounter
== END 2025-06-06 15:39 | disposition home or self-care (01) ==
LOC: HO.HID 14:37
PROVIDERS: PCP Family Medicine; Visit Provider Internal Medicine
DX: B19.10 Unspecified viral hepatitis B without hepatic coma (principal)
CPT/HCPCS: 99213

== ENCOUNTER → 2025-06-06 14:37 | Outpatient (BNVA) | payer MEDICAID, SELFPAY | PROVIDERS: PCP Family Medicine; Visit Provider Internal Medicine | DX: B19.10 Unspecified viral hepatitis B without hepatic coma (principal) | CPT/HCPCS: 99212 ==